=== PATIENT | female | born 1965 | race Caucasian/White ===

== ENCOUNTER 2016-10-07 14:16 | Inpatient (IN) | payer OTHER, MEDICARE ==
[~2016-10-07] VITALS: Ht 154.9 cm; Wt 67.3 kg
[~2016-10-07 14:16] MED LIST: ATIVAN0.5 MG PO; DILAUDID2 MG PO; LIORESAL 10MG T10 MG PO; MOTRIN 600 MG600 MG PO; NEURONTIN300 MG PO; PERCOCET 325 MG1 TA2 PO; QUETIAPINE FUMA25 MG PO; QUETIAPINE FUMA50 MG PO; RISPERDAL CONST50 MG IM; TRIHEXYPHENIDYL2 M2 PO
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
[2016-10-07 14:46] LABS: ABSOLUTE BASOPHIL COUNT 0 /CUMM (0.0-0.2); ABSOLUTE EOSINOPHIL COUNT 0 /CUMM (0.0-0.7); ABSOLUTE GRANULOCYTE CT 14.2 /CUMM (1.4-6.5); ABSOLUTE LYMPH COUNT 0.6 /CUMM (1.2-3.4); ABSOLUTE MONOCYTE COUNT 0.8 /CUMM (0.10-0.60); BASOPHIL % 0 % (0.0-2.0); EOSINOPHIL % 0 % (0-5); GRANULOCYTE % 90.9 % (42.2-75.2); HEMATOCRIT 36.7 % (37-47); MEAN CORPUSCULAR HGB 32.3 PG (27.0-31.0); MEAN CORPUSCULAR HGB CONC 34.1 G/DL (33.0-37.0); MEAN CORPUSCULAR VOLUME 94.8 FL (81.0-99.0); MEAN PLATELET VOLUME 8.4 FL (7.4-10.4); PLATELET COUNT 250 /CUMM (130-400); RED BLOOD CELL CT 3.87 /CUMM (4.20-5.40); WHITE BLOOD CELL COUNT 15.6 /CUMM (4.8-10.8)
--- NOTE | 2016-10-07 14:51 | NUR ---
PT AGITATED ST CATH , LABS DRAWN AND SENT URINE 3 TUBES OBTAINED.
--- NOTE | 2016-10-07 14:54 | NUR ---
UNABLE TO VERIFY HOME MEDS DUE TO CURRENT CIRCUMSTANCES
--- NOTE | 2016-10-07 15:06 | NUR ---
PT RESTING ON HER SIDE AT THIS TIME, MST AT BEDSIDE TO OBTAIN EKG, PT NSR ON MONITOR WITH HR 58 AT THIS TIME, PT STILL UNWILLING TO ANSWER ANY QUESTIONS AND GETS ANGRY WITH STAFF WHEN THEY ATTEMPT TO PROVIDE CARE. SITTER REMAINS WITH PT AT THIS TIME..
--- NOTE | 2016-10-07 15:30 | NUR ---
PT CARE ASSUMED BY THIS RN AT THIS TIME. PT SITTING UP IN BED PULLING AT SHIRT AND BLANKETS. PER DOCTOR OF NATUROPATHIC MEDICINE PT PULLED OFF TELEMONITOR LEADS. PT MEDICATED WITH 1MG ATIVAN FOR AGITATION. DOCTOR OF NATUROPATHIC MEDICINE CONTINUES AT BEDSIDE FOR SAFETY.
--- NOTE | 2016-10-07 16:07 | NUR ---
PT MEDICATED WITH ATIVAN IMG IV BY LAW RN AND HALDOL 2.5MG IM BY GISELLE AU FOR CAT SCAN.
--- NOTE | 2016-10-07 16:29 | CT SCAN REPORT ---
EXAMINATION: CT HEAD WITHOUT CONTRAST CLINICAL INFORMATION: Altered mental status COMPARISON: None. TECHNIQUE: Contiguous axial imaging was performed from the skull base to vertex without intravenous administration of contrast. . FINDINGS: There is no evidence of acute intracranial hemorrhage or territorial infarction. No abnormal mass effect or midline shift is seen. Ko to white matter differentiation is well preserved. No extra-axial fluid collections are identified. The ventricles are normal in size. There is no abnormal attenuation within the brain parenchyma. The osseous structures and soft tissues are normal. The mastoid air cells and visualized portions of the paranasal sinuses are well aerated. IMPRESSION: No acute intracranial pathology.
--- NOTE | 2016-10-07 17:07 | RADIOLOGY REPORT ---
EXAMINATION: XR PORTABLE CHEST CLINICAL INFORMATION: Status post overdose COMPARISON: 06/03/2015 TECHNIQUE: Portable view of the chest was obtained. FINDINGS: The lungs are well expanded. Mild bronchial wall thickening noted. There is no focal consolidation, edema, or effusion. No pneumothorax. The cardiomediastinal silhouette is within normal limits. No acute osseous abnormality. IMPRESSION: Bronchial wall thickening noted which can be seen with a small airways process.
--- NOTE | 2016-10-07 18:12 | NUR ---
HOUSE STAFF TO BEDSIDE FOR EVAL.
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
--- NOTE | 2016-10-07 18:39 | NUR ---
ROOM 111 NURSE INFORMED
--- NOTE | 2016-10-07 20:18 | NUR ---
CRITICAL TEST RESULTS [id number] TADEO WELLER 51 F TESTS AND RESULTS: ETHLYENE GLYCOL NEGATIVE AND METHANOL NEGATIVE Results received and read back by: NANCY DAY Results received date and time: 10/07/162018 The following provider was notified of the results, and read the results back: Notified date and time: 10/07/16 at 2019
--- NOTE | 2016-10-07 21:10 | NUR ---
REPORT GIVEN TO GISELLE CONTRERAS. [facility] CALLED FOR PT TRANSPORT.
--- NOTE | 2016-10-07 21:30 | NUR ---
PATIENT ADMITTED TO 111 WITH DRUG OD AND ADRIANA. PATIENT IS ALERT,RESTLESS.SPEECH IS CLEAR BUT NOT ORIENTED. UNABLE TO ANSWER SIMPLE QUESTIONS TO NAME AND BIRTHDATE. MONITOR SINUS TACHYCARDIA AT RATE OF 101.TB=524/70. SAT ON ROOM AIR =99%.LUNG SOUNDS CLEAR.
[2016-10-07 22:00] VITALS: BP 112/68
[2016-10-07 22:54] LABS: ABSOLUTE BASOPHIL COUNT 0 /CUMM (0.0-0.2); ABSOLUTE EOSINOPHIL COUNT 0 /CUMM (0.0-0.7); ABSOLUTE GRANULOCYTE CT 8.5 /CUMM (1.4-6.5); ABSOLUTE LYMPH COUNT 1.6 /CUMM (1.2-3.4); ABSOLUTE MONOCYTE COUNT 0.8 /CUMM (0.10-0.60)
[2016-10-07 23:00] LABS: BASOPHIL % 0.2 % (0.0-2.0); EOSINOPHIL % 0.1 % (0-5); GRANULOCYTE % 77.3 % (42.2-75.2); MEAN CORPUSCULAR HGB CONC 33.7 G/DL (33.0-37.0); MEAN CORPUSCULAR VOLUME 94.7 FL (81.0-99.0); MEAN PLATELET VOLUME 8.6 FL (7.4-10.4); PLATELET COUNT 208 /CUMM (130-400); RBC DISTRIBUTION WIDTH 15.2 % (11.5-14.5); RED BLOOD CELL CT 3.07 /CUMM (4.20-5.40)
[2016-10-07 23:05] LABS: HEMATOCRIT 29.1 % (37-47)
[2016-10-08] VITALS (17 sets, daily range): BP systolic 95–1438; BP diastolic 58–81
--- NOTE | 2016-10-08 01:38 | Admission Certification ---
Admission Certification Certification Statement - As attending physician, I certify that at the time of - admission, based on clinical presentation, severity of - symptoms, need for further diagnostic testing and - therapeutic interventions, and risk of adverse outcomes - without in-hospital treatment, in my clinical assessment, - this patient requires an acute hospital stay for a minimum - of two nights or longer. I have also considered psychsocial - factors such as support system, advanced age, financial - issues, cognitive issues, and failed out-patient treatments, - past re-admission history, safety of patient, and lack of - compliance as applicable. Specific rationale supporting this admission is: Encephalopathy, acute kidney injury
--- NOTE | 2016-10-08 02:30 | NUR ---
PATIENT APPEARS TO TALK TO PEOPLE NOT IN THE ROOM.WILL FLAIL ARMS AND LEGS WITHOUT PROVICATION.REMAINS RESTLESS IN BED AND RESISTANT TO CARE,ALTHOUGH LESS COMBATIVE IF PROCEDUES EXPLAINED.
[2016-10-08 06:20] LABS: ABSOLUTE BASOPHIL COUNT 0.1 /CUMM (0.0-0.2); ABSOLUTE EOSINOPHIL COUNT 0 /CUMM (0.0-0.7); ABSOLUTE GRANULOCYTE CT 7.7 /CUMM (1.4-6.5); ABSOLUTE LYMPH COUNT 2.1 /CUMM (1.2-3.4); ABSOLUTE MONOCYTE COUNT 0.7 /CUMM (0.10-0.60); BASOPHIL % 0.5 % (0.0-2.0); EOSINOPHIL % 0.2 % (0-5); HEMATOCRIT 30.9 % (37-47); MEAN CORPUSCULAR HGB 32.6 PG (27.0-31.0); MEAN CORPUSCULAR HGB CONC 34.6 G/DL (33.0-37.0); MEAN CORPUSCULAR VOLUME 94.2 FL (81.0-99.0); MEAN PLATELET VOLUME 8.5 FL (7.4-10.4); PLATELET COUNT 193 /CUMM (130-400); RBC DISTRIBUTION WIDTH 14.6 % (11.5-14.5); RED BLOOD CELL CT 3.28 /CUMM (4.20-5.40); WHITE BLOOD CELL COUNT 10.5 /CUMM (4.8-10.8)
[2016-10-08 06:26] LABS: PT 11.5 SEC (9.4-12.5); PTT 39 SEC (25-37)
--- NOTE | 2016-10-08 08:13 | RADIOLOGY REPORT ---
EXAMINATION: XR PORTABLE CHEST CLINICAL INFORMATION: Leukocytosis COMPARISON: 10/07/2016 TECHNIQUE: Portable view of the chest was obtained. FINDINGS: Lung volumes are symmetric. There are subtle streaky opacity at the left base which may reflect bronchovascular crowding or atelectasis. The right lung is clear. No evidence of pneumothorax, pleural effusion, or pulmonary edema. The cardiomediastinal contour is unremarkable. No acute osseous findings are seen. IMPRESSION: Subtle streaky left basilar opacity may reflect atelectasis or bronchovascular crowding; short-term radiographic follow-up may be performed to assess for developing consolidation.
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
--- NOTE | 2016-10-08 10:37 | NUR ---
0800: RECEIVED PT IN BED. DROWSY BUT AROUSABLE. CONFUSED, AGITATED, ANGRY. PT HALLUCINATING, PULLING AT THINGS, POINTING AND TALKING TO PEOPLE WHO AREN'T THERE. PT NOT FOLLOWING COMMANDS. PUPILS EQUAL, REACTIVE. LUNGS CLEAR. ON RA. NSR ON MONITOR. AFEBRILE. B/P WNL. UNKNOWN LAST BM. +BS. ABDOMEN SOFT. CHAN IN PLACE DRAINING LARGE AMOUNTS OF CLEAR YELLOW URINE. SKIN INTACT. NO EDEMA NOTED. PT RECEIVING IVF NS @ 200ML/HR PER DR MORALES AT THIS TIME. WHILE BANANA BAG IS RUNNING AT 125 ML/HR PLEASE RUN IVF AT ONLY 75 ML/HR. CIWA 13, PER DR MORALES NO PRN ATIVAN AT THIS TIME SHE WANTS PT TO WAKE UP MORE. GCS 13. ALPS IN PLACE. SITTER REMAINS AT BEDSIDE. WILL MONITOR.
--- NOTE | 2016-10-08 10:58 | Cons- Psychiatry ---
Psychiatric Consult Date of Consult: 10/08/16 Reason for Consult: "drug abuse" After discussion with the ICU team, changed to: "Patient had a drug overdose, with non-prescribed opiates on utox. Please advise on psychotropic medication restart and assist with disposition recommendation." History of Present Illness: 51 F ROSANA from a residence for [facility], after another person there could not awaken her. She responded to Narcan, but the team has been unable to determine what she may have ingested or injected. Ethylene glycol and methanol negative. Utox: Opiates 2589 Benzos 224 Cannabis 26.5 Serum Alcohol <10.0 CK 5747 on 10/07/16 Mg++ 1.4, K+ 3.3; both on 10/08/16 House staff has made an attempt to collect collateral from friends. the patient' s boyfriend, Arvind, did not answer the phone when called. On initial exam, track mckenzie and bruises in LUE, jean. dorsum of hand. Also, "blood crusted on her mouth." Tauma to upper lip. Please see the H&P for the discussion on acid base disorder, ADRIANA, likely heroin overdose. Allergies: Coded Allergies: Penicillins (UNKNOWN 10/07/16) Current Medications: Current Medications Sig/Stewart Start time Last Medication Dose Route Stop Time Status Admin Acetaminophen 650 MG Q6P PRN 10/08 0115 AC PO Acetaminophen/ 1 TAB Q6P PRN 10/08 0115 AC Hydrocodone Bitart PO Clindamycin 600 MG Q8H 10/08 0400 AC 10/08 Dextrose/Water 50 ML IV 1134 Clindamycin 600 MG IQ8 10/07 1945 DC 10/07 Dextrose/Water 50 ML IV 1959 Cyanocobalamin/ 1 BAG 2300 10/07 2300 DC 10/07 Thiamine/Pyridoxine IV 10/08 0659 2309 Dextrose/Water 1,000 ML Cyanocobalamin/ 1 BAG DAILY 10/07 1829 DC Thiamine/Pyridoxine IV 10/08 0108 Dextrose/Water 1,000 ML Haloperidol 2.5 MG ONCE ONE 10/07 1600 DC 10/07 IM 10/07 1601 1555 Haloperidol 0 .STK-MED ONE 10/07 1555 DC .ROUTE Lorazepam 2 MG Q6 10/07 2359 AC 10/08 IV 10/08 1801 0532 Lorazepam 2 MG ONE ONE 10/07 1945 DC 10/07 IV 10/07 1946 1957 Lorazepam 0 .STK-MED ONE 10/07 1937 DC .ROUTE Lorazepam 2 MG Q2P PRN 10/07 1830 AC IV Lorazepam 1 MG ONCE ONE 10/07 1600 DC 10/07 IV 10/07 1601 1607 Lorazepam 0 .STK-MED ONE 10/07 1554 DC .ROUTE Lorazepam 1 MG ONCE ONE 10/07 1530 DC 10/07 IV 10/07 1531 1530 Lorazepam 0 .STK-MED ONE 10/07 1524 DC .ROUTE Magnesium Sulfate 1 GM ONCE ONE 10/08 0800 AC 10/08 Dextrose/Water 100 ML IV 10/08 1159 0925 Morphine Sulfate 1 MG Q4P PRN 10/08 0115 AC IV Potassium Chloride 10 MEQ Q1 10/08 0900 DC 10/08 IV 10/08 1101 1141 Potassium Chloride 20 MEQ Q13H 10/08 0900 AC 10/08 Sodium Chloride 1,000 ML IV 10/09 1059 1019 Sodium Chloride 1,000 ML Q13H 10/08 2345 DC 10/08 IV 0157 Sodium Chloride 1,000 ML BOLUS ONE 10/07 1845 DC 10/07 IV 10/07 1944 1957 Sodium Chloride 1,000 ML BOLUS ONE 10/07 1730 DC 10/07 IV 10/07 1829 1853 Sodium Chloride 1,000 ML BOLUS ONE 10/07 1545 DC 10/07 IV 10/07 1644 1824 Sodium Chloride 1,000 ML BOLUS ONE 10/07 1445 DC 10/07 IV 10/07 1544 1621 Thiamine HCl 100 MG ONCE ONE 10/07 1830 CAN IM 10/07 1831 Past History Past Medical History Neurological: NONE EENT: NONE Cardiovascular: NONE Respiratory: NONE Gastrointestinal: NONE Hepatic: NONE Renal: NONE Musculoskeletal: NONE Psychiatric: anxiety, depression, PTSD BORDERLINE PERSONALITY DO Endocrine: NONE Blood Disorders: NONE Cancer(s): NONE ACCOUNT DIRECTOR/Reproductive: NONE Past Surgical History Surgical History: appendectomy Psychiatric Treatment History Psych Treatment Psychiatric Treatment Yes Inpatient Treatment Yes Outpatient Treatment Yes Location of Treatment [facility] 2007, and outpt by [facility] Diagnosis: See below Risk Factors: SA/MH hospitalized, substance abuse, isolate/no social support, limited support Substance Use/Abuse History Drug Use/Abuse Substances Used/Abused Yes Substance Used/Abused Alcohol Substance Abuse Treatment Substance Abuse Treatment Past Substance Abuse [place] Yes Assessment/Plan Mental Status Mental Status Exam: We were unable to interview the patient today, as she is asleep, and unable to awaken easily. She is in no distress, and breathing regularly. Lab Results: Laboratory Tests 10/08 10/07 0600 2200 Chemistry Sodium (137 - 145 mmol/L) 144 Potassium (3.5 - 5.1 mmol/L) 3.3 L Chloride (98 - 107 mmol/L) 110 H Carbon Dioxide (22 - 30 mmol/L) 22 Anion Gap (5 - 16) 11 BUN (7 - 17 mg/dL) 32 H Creatinine (0.5 - 1.0 mg/dL) 1.5 H Estimated GFR (>60 ml/min) 37 L Glucose (65 - 99 mg/dL) 92 Lactic Acid (0.7 - 2.1 mmol/L) 0.8 Calcium (8.4 - 10.2 mg/dL) 8.8 Phosphorus (2.5 - 4.5 mg/dL) 3.7 Magnesium (1.6 - 2.3 mg/dL) 1.4 L Total Bilirubin (0.2 - 1.3 mg/dL) 0.9 AST (14 - 36 U/L) 136 H ALT (9 - 52 U/L) 43 Creatine Kinase (30 - 135 U/L) 5840 H Albumin (3.5 - 5.0 g/dL) 3.5 Coagulation PT (9.4 - 12.5 SEC) 11.5 INR (0.90 - 1.19) 1.10 APTT (25 - 37 SEC) 39 H Hematology CBC w Diff NO MAN DIFF REQ WBC (4.8 - 10.8 /CUMM) 10.5 RBC (4.20 - 5.40 /CUMM) 3.28 L Hgb (12.0 - 16.0 G/DL) 10.7 L Hct (37 - 47 %) 30.9 L MCV (81.0 - 99.0 FL) 94.2 MCH (27.0 - 31.0 PG) 32.6 H RDW (11.5 - 14.5 %) 14.6 H Plt Count (130 - 400 /CUMM) 193 MPV (7.4 - 10.4 FL) 8.5 Gran % (42.2 - 75.2 %) 73.0 Lymphocytes % (20.5 - 51.1 %) 20.0 L Monocytes % (1.7 - 9.3 %) 6.3 Eosinophils % (0 - 5 %) 0.2 Basophils % (0.0 - 2.0 %) 0.5 Absolute Granulocytes (1.4 - 6.5 /CUMM) 7.7 H Absolute Lymphocytes (1.2 - 3.4 /CUMM) 2.1 Absolute Monocytes (0.10 - 0.60 /CUMM) 0.7 H Absolute Eosinophils (0.0 - 0.7 /CUMM) 0 Absolute Basophils (0.0 - 0.2 /CUMM) 0.1 PUBS MCHC (33.0 - 37.0 G/DL) 34.6 10/07 10/07 10/07 2200 2148 1944 Chemistry Sodium (137 - 145 mmol/L) 145 Potassium (3.5 - 5.1 mmol/L) 3.8 Chloride (98 - 107 mmol/L) 114 H Carbon Dioxide (22 - 30 mmol/L) 20 L Anion Gap (5 - 16) 11 BUN (7 - 17 mg/dL) 37 H Creatinine (0.5 - 1.0 mg/dL) 2.2 H Estimated GFR (>60 ml/min) 24 L Glucose (65 - 99 mg/dL) 86 Lactic Acid (0.7 - 2.1 mmol/L) 0.9 Calcium (8.4 - 10.2 mg/dL) 8.2 L Phosphorus (2.5 - 4.5 mg/dL) 4.4 Magnesium (1.6 - 2.3 mg/dL) 1.6 Total Bilirubin (0.2 - 1.3 mg/dL) 0.6 AST (14 - 36 U/L) 110 H ALT (9 - 52 U/L) 39 Creatine Kinase (30 - 135 U/L) 5747 H Albumin (3.5 - 5.0 g/dL) 3.3 L Hematology CBC w Diff NO MAN DIFF REQ WBC (4.8 - 10.8 /CUMM) 11.0 H RBC (4.20 - 5.40 /CUMM) 3.07 L Hgb (12.0 - 16.0 G/DL) 9.8 L Hct (37 - 47 %) 29.1 L MCV (81.0 - 99.0 FL) 94.7 MCH (27.0 - 31.0 PG) 32.0 H RDW (11.5 - 14.5 %) 15.2 H Plt Count (130 - 400 /CUMM) 208 MPV (7.4 - 10.4 FL) 8.6 Gran % (42.2 - 75.2 %) 77.3 H Lymphocytes % (20.5 - 51.1 %) 14.8 L Monocytes % (1.7 - 9.3 %) 7.6 Eosinophils % (0 - 5 %) 0.1 Basophils % (0.0 - 2.0 %) 0.2 Absolute Granulocytes (1.4 - 6.5 /CUMM) 8.5 H Absolute Lymphocytes (1.2 - 3.4 /CUMM) 1.6 Absolute Monocytes (0.10 - 0.60 /CUMM) 0.8 H Absolute Eosinophils (0.0 - 0.7 /CUMM) 0 Absolute Basophils (0.0 - 0.2 /CUMM) 0 PUBS MCHC (33.0 - 37.0 G/DL) 33.7 Urines Ur Random Creatinine (mg/dL) 29.4 Cancelled Ur Random Sodium (30 - 90 mmol/L) 153 H Ur Random Potassium (mmol/L) 5.0 Fraction Sodium Excret (<1% %) 10.6 H 10/07 10/07 10/07 1930 1738 1437 Blood Gas pH (7.35 - 7.45 PH) 7.46 H pCO2 (35 - 45 TORR) 25 L pO2 (80 - 100 TORR) 91 HCO3 (21 - 28 MEQ/L) 17 L ABG O2 Sat (Measured) (>96.0 %) 97.0 Carboxyhemoglobin (1.5 - 5.0 %) 0.4 L O2 Concentration % RA O2 Delivery Method RA Chemistry Sodium Cancelled Potassium Cancelled Chloride Cancelled Carbon Dioxide Cancelled Anion Gap Cancelled BUN Cancelled Creatinine Cancelled BUN/Creatinine Ratio Cancelled Miscellaneous Phlebotomy Draw Site LEFT BRACHIAL Toxicology Urine Opiates Screen (>2000 NG/ML) 2589.00 H Methadone Screen (>300 NG/ML) 101 Barbiturate Screen (>200 NG/ML) 88 Ur Phencyclidine Scrn (>25 NG/ML) < 6.00 Amphetamines Screen (>1000 NG/ML) 130 U Benzodiazepines Scrn (>200 NG/ML) 224 H Urine Cocaine Screen (>300 NG/ML) ND Urine Cannabis Screen (>50 NG/ML) 26.50 10/07 10/07 1437 1434 Chemistry Sodium (137 - 145 mmol/L) 147 H Potassium (3.5 - 5.1 mmol/L) 4.0 Chloride (98 - 107 mmol/L) 106 Carbon Dioxide (22 - 30 mmol/L) 18 L Anion Gap (5 - 16) 23 H BUN (7 - 17 mg/dL) 44 H Creatinine (0.5 - 1.0 mg/dL) 3.0 H Estimated GFR (>60 ml/min) 17 L BUN/Creatinine Ratio (7 - 25 %) 14.7 Glucose (65 - 99 mg/dL) 132 H Serum Osmolality (285 - 295 MOSM/KG) 318 H Calcium (8.4 - 10.2 mg/dL) 10.4 H Magnesium (1.6 - 2.3 mg/dL) 1.8 Total Bilirubin (0.2 - 1.3 mg/dL) 1.0 AST (14 - 36 U/L) 67 H ALT (9 - 52 U/L) 32 Alkaline Phosphatase (<127 U/L) 90 Troponin I (< 0.11 ng/ml) 0.01 Total Protein (6.3 - 8.2 g/dL) 8.6 H Albumin (3.5 - 5.0 g/dL) 4.4 Globulin (1.9 - 4.2 gm/dL) 4.2 Albumin/Globulin Ratio (1.1 - 2.2 %) 1.0 L Hematology CBC w Diff MAN DIFF ORDERED WBC (4.8 - 10.8 /CUMM) 15.6 H RBC (4.20 - 5.40 /CUMM) 3.87 L Hgb (12.0 - 16.0 G/DL) 12.5 Hct (37 - 47 %) 36.7 L MCV (81.0 - 99.0 FL) 94.8 MCH (27.0 - 31.0 PG) 32.3 H RDW (11.5 - 14.5 %) 15.0 H Plt Count (130 - 400 /CUMM) 250 MPV (7.4 - 10.4 FL) 8.4 Gran % (42.2 - 75.2 %) 90.9 H Lymphocytes % (20.5 - 51.1 %) 4.0 L Monocytes % (1.7 - 9.3 %) 5.1 Eosinophils % (0 - 5 %) 0 Basophils % (0.0 - 2.0 %) 0 L Absolute Granulocytes (1.4 - 6.5 /CUMM) 14.2 H Segmented Neutrophils (42.2 - 75.2 %) 83 H Band Neutrophils (0.0 - 5.0 %) 9 H Absolute Lymphocytes (1.2 - 3.4 /CUMM) 0.6 L Lymphocytes (20.5 - 51.1 %) 7 L Monocytes (1.7 - 9.3 %) 1 L Absolute Monocytes (0.10 - 0.60 /CUMM) 0.8 H Absolute Eosinophils (0.0 - 0.7 /CUMM) 0 Absolute Basophils (0.0 - 0.2 /CUMM) 0 Platelet Estimate (ADEQUATE) ADEQUATE Normocytic RBCs VERIFIED Normochromic RBCs VERIFIED PUBS MCHC (33.0 - 37.0 G/DL) 34.1 Miscellaneous Ref Lab Test Result Pending Toxicology Salicylates (0 - 20.0 mg/dL) < 1.0 Acetaminophen (10.0 - 30.0 ug/mL) < 10.0 L Ethylene Glycol NEGATIVE Serum Alcohol (<10 MG/DL) < 10.0 Methyl Alcohol, Quant NEGATIVE Urines Urinalysis MOD H Urine Color (YEL,AMB,STR) YEL Urine Clarity (CLEAR) HAZY H Urine pH (5.0 - 8.0) 5.5 Ur Specific [place] (1.001 - 1.035) >= 1.030 Urine Protein (NEG,<30 MG/DL) 100 H Urine Ketones (NEG) TRACE H Urine Nitrite (NEG) NEG Urine Bilirubin (NEG) NEG Urine Urobilinogen (0.1 - 1.0 EU/dl) 0.2 Ur Leukocyte Esterase (NEG) NEG Ur Microscopic SEDIMENT EXAMINED Urine WBC (0 - 2 /HPF) RARE Ur Epithelial Cells (NONE,FEW) RARE Urine Mucus (FEW,NONE) FEW Urine Hemoglobin (NEG) TRACE-LYSED Urine Glucose (N MG/DL) NEG Urine Test NEGATIVE Diffential Diagnosis: From [facility] D/C note of 10/20/07 and treatment note 03/24/2016 from [facility]: Bipolar I disorder, mixed, mainly irritable type with rapid cycling Alcohol use disorder, severe, recurrent Opioid dependence Benzodiazepine use disorder Substance-induced mood disorder History of PTSD with "flashbacks" Borderline P.D., severe. Impression: Nursing and the ICU medical team report that the patient has apparently been referring to internal stimuli, and has been agitated earlier. We suggest that PRN Haldol be made available. Do not administer her risperidone Consta depot injection at this time. The patient had moved her residence, and her VN was unable to find her on 2016. She has been discharged from that agency, [facility], and from clinic at [facility], and was last seen by psychiatry there on 04/30/16. The patient had reported problem with her landlord and problem with obtaining Artane, as insurance would not pay for it. She had been directed to Guillermina Duong (ACCOUNT DIRECTOR) for menopause symptoms at that time. Also at that time, the patient had refused olanzapine, Vistaril, gabapentin and an increase in quetiapine. Also directed to [facility] for housing assistance. Per med record at [facility], last known home meds, as of 03/24/16: Trihexyphenidyl/Artane 2 mg PO BID (Prior auth obtained by pharmacy, 06/09/16) Risperidone 1 mg PO BID, PRN Risperidone Consta 50 mg/2 mL, 2 mL IM every 2 weeks Quetiapine/Seroquel 25 mg PO 1-2 tabs up to 2X/day PRN Provisional Treatment Plan: 1. Please order haloperidol 1 mg PO, IM if unable to take PO, every 8 hours, as needed, for agitation, hallucinations. a. Monitor and replete electrolytes, especially potassium and magnesium. b. Monitor EKG, and hold this medication if arrhythmia or if QTc greater than 475 mS c. Hold for sedation. 2. Continue 1:1 sitter, at least until we can rule out suicidal ideation. 3. 'ETOH Detox' order set, for suspected alcohol and benzo withdrawal. a. Daily thiamine, folic acid and MVI b. CIWA monitoring protocol 4. The patient is not to leave the hospital, AMA, or otherwise, until cleared by psychiatry. I have partially filled out a Physician's Emergenecy Certificate and place it in the chart for review, completion and signature of the attending physician. 5. When ultimate discharge day is known, please contact her VNA, [facility], Fei Tobar, GISELLE, for resumption of care. 6. Discharge summary to psychiatry provider at [facility], Renetta Abernathy SAMANTHA, [phone]. 7. Consider opiate detox protocol, a copy of which we will leave in the chart. We will continue to follow along. Wood Brooks APRN, Pager [phone] Addendum Addendum 10/08/16 4130: The patient is awake and agitated, delirious. Her speech is mumbled and she is providing nonsense answers to questions. Housestaff reports that the patient's boyfriend told them that the patient had been drinking [employer]IR [employer]IP[employer], so we suggest that we assume we are treating the patient for alcohol and benzo withdrawal, at this time. 7. Cancel the previous Haldol order. 8. Please order haloperidol 1 mg PO, IM if unable to take PO, every 6 hours, scheduled, for agitation, hallucinations. a. Monitor and replete electrolytes, especially potassium and magnesium. b. Monitor EKG, and hold this medication if arrhythmia or if QTc greater than 475 mS c. Hold for oversedation. 9. Please order haloperidol 2 mg PO, IM if unable to take PO, every 8 hours, as needed, for severe or dangerous agitation. 10. Evaluate for alternate alcohol ingestion. We suggest that the 'ETOH Detox' order set be initiated. Nursing reports that the patient has impaired swallowing/gag reflex, so the Haldol will be ordered by housestaff as IM, for now; Lorazepam will be ordered as IV. Do not give haloperidol via IV. I will ask the covering psychiatrist, Dr. Beauchamp, to look in on the patient tomorrow. Wood Brooks APRN, Pager [phone]
--- NOTE | 2016-10-08 11:21 | NUR ---
PT SLEEPING. CALM AND COOPERATIVE AT THIS TIME. CONT OBSERVATION MONITOR AT BEDSIDE. PER PSYCH PT UNABLE TO LEAVE AMA.
--- NOTE | 2016-10-08 12:50 | NUR ---
REC'D SWALLOW EVAL ORDERS; EMEKA RN,HARINI-PT RECENTLY REC'D ATIVAN. PT CURRENTLY LETHARGIC, DIFFICULTY FOLLOWING DIRECTIONS. WILL REATTEMPT LATER THIS AFTERNOON.
--- NOTE | 2016-10-08 14:51 | Cons- Neurology ---
General Information and HPI Consulting Request Date of Consult: 10/08/16 Requested By: RICARDO LEE MD History of Present Illness: 51-year-old female found at home unresponsive. When seen in the ED she was confused and combative. Per verbal report she did seem to transiently awaken with. She is unknown. Drug user but it is unclear what she has been taking lately. She has had previous ED visits for drug use.in-hospital she intermittently awakens but appears hallucinating. There has been no observed convulsive activity Allergies/Medications Allergies: Coded Allergies: Penicillins (UNKNOWN 10/07/16) Home Med List: Baclofen (Lioresal) 10 MG TAB 1 TAB PO TIDPRN PRN muscle strain Gabapentin (Neurontin) 300 MG CAP 1 CAP PO TID ANXIETY (Reported) HYDROMORPHONE HCL (Dilaudid) 2 MG TAB 1-2 TAB PO Q6P PRN severe pain Ibuprofen (Motrin 600 MG Tab) 600 MG TAB 1 TAB PO Q6P PRN PAIN Quetiapine Fumarate 25 MG TAB 25 MG PO PRN MENTAL HEALTH/SLEEP (Reported) RISPERIDONE MICROSPHERES (Risperdal Consta) 50 MG/2 ML SYRINGE 50 MG IM Q2W BIPOLAR (Reported) Trihexyphenidyl HCl 2 MG TABLET 1 TAB PO BID DIRECTED (Reported) Current Medications: Current Medications Sig/Stewart Start time Last Medication Dose Route Stop Time Status Admin Acetaminophen 650 MG Q6P PRN 10/08 0115 AC PO Acetaminophen/ 1 TAB Q6P PRN 10/08 0115 AC Hydrocodone Bitart PO Clindamycin 600 MG Q8H 10/08 0400 AC 10/08 Dextrose/Water 50 ML IV 1134 Clindamycin 600 MG IQ8 10/07 1945 DC 10/07 Dextrose/Water 50 ML IV 1959 Cyanocobalamin/ 1 BAG DAILY 10/08 1159 AC 10/08 Thiamine/Pyridoxine IV 1350 Dextrose/Water 1,000 ML Cyanocobalamin/ 1 BAG 2300 10/07 2300 DC 10/07 Thiamine/Pyridoxine IV 10/08 0659 2309 Dextrose/Water 1,000 ML Cyanocobalamin/ 1 BAG DAILY 10/07 1829 DC Thiamine/Pyridoxine IV 10/08 0108 Dextrose/Water 1,000 ML Haloperidol 1 MG Q8P PRN 10/08 1430 UNVr IM Haloperidol 2.5 MG ONCE ONE 10/07 1600 DC 10/07 IM 10/07 1601 1555 Haloperidol 0 .STK-MED ONE 10/07 1555 DC .ROUTE Lorazepam 2 MG Q6 10/07 2359 AC 10/08 IV 10/08 1801 1206 Lorazepam 2 MG ONE ONE 10/07 1945 DC 10/07 IV 10/07 1946 1957 Lorazepam 0 .STK-MED ONE 10/07 1937 DC .ROUTE Lorazepam 2 MG Q2P PRN 10/07 1830 AC IV Lorazepam 1 MG ONCE ONE 10/07 1600 DC 10/07 IV 10/07 1601 1607 Lorazepam 0 .STK-MED ONE 10/07 1554 DC .ROUTE Lorazepam 1 MG ONCE ONE 10/07 1530 DC 10/07 IV 10/07 1531 1530 Lorazepam 0 .STK-MED ONE 10/07 1524 DC .ROUTE Magnesium Sulfate 1 GM ONCE ONE 10/08 0800 DC 10/08 Dextrose/Water 100 ML IV 10/08 1159 0925 Morphine Sulfate 1 MG Q4P PRN 10/08 0115 AC IV Potassium Chloride 10 MEQ Q1 10/08 0900 DC 10/08 IV 10/08 1101 1141 Potassium Chloride 20 MEQ Q13H 10/08 0900 AC 10/08 Sodium Chloride 1,000 ML IV 10/09 1059 1019 Sodium Chloride 1,000 ML Q13H 10/08 2345 DC 10/08 IV 0157 Sodium Chloride 1,000 ML BOLUS ONE 10/07 1845 DC 10/07 IV 10/07 1944 1957 Sodium Chloride 1,000 ML BOLUS ONE 10/07 1730 DC 10/07 IV 10/07 1829 1853 Sodium Chloride 1,000 ML BOLUS ONE 10/07 1545 DC 10/07 IV 10/07 1644 1824 Sodium Chloride 1,000 ML BOLUS ONE 10/07 1445 DC 10/07 IV 10/07 1544 1621 Thiamine HCl 100 MG ONCE ONE 10/07 1830 CAN IM 10/07 1831 Review of Systems Review of Systems: Unable to obtain due to patient's mental status Past History Travel History Traveled to [place] past 21 day No Medical History Neurological: NONE EENT: NONE Cardiovascular: NONE Respiratory: NONE Gastrointestinal: NONE Hepatic: NONE Renal: NONE Musculoskeletal: NONE Psychiatric: anxiety, depression, PTSD 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 Home Smoking Status: Unknown If Ever Smoked Illicit Drug Use: cocaine, heroin Functional Ability ADLs Independent: dressing, eating, toileting, bathing. Ambulation: independent IADLs Independent: shopping, housework, finances, food prep, telephone, transportation , medication admin. Exam & Diagnostic Data Vital Signs and I&O Vital Signs Date Time Temp Pulse Resp B/P Pulse O2 O2 Flow FiO2 Ox Delivery Rate 10/08 1400 76 18 95/66 10/08 1200 97.0 68 18 110/60 10/08 1200 97.0 68 18 110/60 98 Room Air 10/08 1000 83 20 102/68 10/08 0800 97.8 86 20 122/70 10/08 0800 97.8 86 20 122/70 99 Room Air 10/08 0400 96.6 89 20 117/64 10/08 0400 99 Room Air 10/08 0000 97.5 97 20 118/70 10/08 0000 97.5 97 20 118/70 99 Room Air 10/08 0000 95 Room Air 10/07 2200 96.3 102 22 112/68 10/07 2200 98 Room Air 10/07 2053 97.6 109 24 122/65 98 Room Air 10/07 1635 98.6 105 20 123/58 99 Room Air 10/07 1503 96 Room Air Intake & Output 10/08 1600 10/08 0800 10/08 0000 Intake Total 1519 1314 3200 Output Total 2450 3090 770 Balance -931 -1776 2430 Intake, IV 1519 1314 3200 Intake, Oral 0 Number 0 Bowel Movements Output, Urine 2450 3090 770 Patient 144 lb Weight Physical Exam: Lethargic, briefly arousable Intermittently seems to follow a simple command Pupil small difficult to assess reaction Extraocular movements intact laterally No obvious facial weakness Hearing, facial sensation, palate not assessable Motor tone normal, moving extremities equally Withdraw to noxious stimuli Deep tendon reflexes 1+ bilateral No convulsive activities noted Last 48 Hours of Lab Results: Laboratory Tests 10/08 10/07 0600 2200 Chemistry Sodium (137 - 145 mmol/L) 144 Potassium (3.5 - 5.1 mmol/L) 3.3 L Chloride (98 - 107 mmol/L) 110 H Carbon Dioxide (22 - 30 mmol/L) 22 Anion Gap (5 - 16) 11 BUN (7 - 17 mg/dL) 32 H Creatinine (0.5 - 1.0 mg/dL) 1.5 H Estimated GFR (>60 ml/min) 37 L Glucose (65 - 99 mg/dL) 92 Lactic Acid (0.7 - 2.1 mmol/L) 0.8 Calcium (8.4 - 10.2 mg/dL) 8.8 Phosphorus (2.5 - 4.5 mg/dL) 3.7 Magnesium (1.6 - 2.3 mg/dL) 1.4 L Total Bilirubin (0.2 - 1.3 mg/dL) 0.9 AST (14 - 36 U/L) 136 H ALT (9 - 52 U/L) 43 Creatine Kinase (30 - 135 U/L) 5840 H Albumin (3.5 - 5.0 g/dL) 3.5 Coagulation PT (9.4 - 12.5 SEC) 11.5 INR (0.90 - 1.19) 1.10 APTT (25 - 37 SEC) 39 H Hematology CBC w Diff NO MAN DIFF REQ WBC (4.8 - 10.8 /CUMM) 10.5 RBC (4.20 - 5.40 /CUMM) 3.28 L Hgb (12.0 - 16.0 G/DL) 10.7 L Hct (37 - 47 %) 30.9 L MCV (81.0 - 99.0 FL) 94.2 MCH (27.0 - 31.0 PG) 32.6 H RDW (11.5 - 14.5 %) 14.6 H Plt Count (130 - 400 /CUMM) 193 MPV (7.4 - 10.4 FL) 8.5 Gran % (42.2 - 75.2 %) 73.0 Lymphocytes % (20.5 - 51.1 %) 20.0 L Monocytes % (1.7 - 9.3 %) 6.3 Eosinophils % (0 - 5 %) 0.2 Basophils % (0.0 - 2.0 %) 0.5 Absolute Granulocytes (1.4 - 6.5 /CUMM) 7.7 H Absolute Lymphocytes (1.2 - 3.4 /CUMM) 2.1 Absolute Monocytes (0.10 - 0.60 /CUMM) 0.7 H Absolute Eosinophils (0.0 - 0.7 /CUMM) 0 Absolute Basophils (0.0 - 0.2 /CUMM) 0.1 PUBS MCHC (33.0 - 37.0 G/DL) 34.6 10/070 8 1944 Chemistry Sodium (137 - 145 mmol/L) 145 Potassium (3.5 - 5.1 mmol/L) 3.8 Chloride (98 - 107 mmol/L) 114 H Carbon Dioxide (22 - 30 mmol/L) 20 L Anion Gap (5 - 16) 11 BUN (7 - 17 mg/dL) 37 H Creatinine (0.5 - 1.0 mg/dL) 2.2 H Estimated GFR (>60 ml/min) 24 L Glucose (65 - 99 mg/dL) 86 Lactic Acid (0.7 - 2.1 mmol/L) 0.9 Calcium (8.4 - 10.2 mg/dL) 8.2 L Phosphorus (2.5 - 4.5 mg/dL) 4.4 Magnesium (1.6 - 2.3 mg/dL) 1.6 Total Bilirubin (0.2 - 1.3 mg/dL) 0.6 AST (14 - 36 U/L) 110 H ALT (9 - 52 U/L) 39 Creatine Kinase (30 - 135 U/L) 5747 H Albumin (3.5 - 5.0 g/dL) 3.3 L Hematology CBC w Diff NO MAN DIFF REQ WBC (4.8 - 10.8 /CUMM) 11.0 H RBC (4.20 - 5.40 /CUMM) 3.07 L Hgb (12.0 - 16.0 G/DL) 9.8 L Hct (37 - 47 %) 29.1 L MCV (81.0 - 99.0 FL) 94.7 MCH (27.0 - 31.0 PG) 32.0 H RDW (11.5 - 14.5 %) 15.2 H Plt Count (130 - 400 /CUMM) 208 MPV (7.4 - 10.4 FL) 8.6 Gran % (42.2 - 75.2 %) 77.3 H Lymphocytes % (20.5 - 51.1 %) 14.8 L Monocytes % (1.7 - 9.3 %) 7.6 Eosinophils % (0 - 5 %) 0.1 Basophils % (0.0 - 2.0 %) 0.2 Absolute Granulocytes (1.4 - 6.5 /CUMM) 8.5 H Absolute Lymphocytes (1.2 - 3.4 /CUMM) 1.6 Absolute Monocytes (0.10 - 0.60 /CUMM) 0.8 H Absolute Eosinophils (0.0 - 0.7 /CUMM) 0 Absolute Basophils (0.0 - 0.2 /CUMM) 0 PUBS MCHC (33.0 - 37.0 G/DL) 33.7 Urines Ur Random Creatinine (mg/dL) 29.4 Cancelled Ur Random Sodium (30 - 90 mmol/L) 153 H Ur Random Potassium (mmol/L) 5.0 Fraction Sodium Excret (<1% %) 10.6 H 10/07 10/07 10/07 1930 1738 1437 Blood Gas pH (7.35 - 7.45 PH) 7.46 H pCO2 (35 - 45 TORR) 25 L pO2 (80 - 100 TORR) 91 HCO3 (21 - 28 MEQ/L) 17 L ABG O2 Sat (Measured) (>96.0 %) 97.0 Carboxyhemoglobin (1.5 - 5.0 %) 0.4 L O2 Concentration % RA O2 Delivery Method RA Chemistry Sodium Cancelled Potassium Cancelled Chloride Cancelled Carbon Dioxide Cancelled Anion Gap Cancelled BUN Cancelled Creatinine Cancelled BUN/Creatinine Ratio Cancelled Miscellaneous Phlebotomy Draw Site LEFT BRACHIAL Toxicology Urine Opiates Screen (>2000 NG/ML) 2589.00 H Methadone Screen (>300 NG/ML) 101 Barbiturate Screen (>200 NG/ML) 88 Ur Phencyclidine Scrn (>25 NG/ML) < 6.00 Amphetamines Screen (>1000 NG/ML) 130 U Benzodiazepines Scrn (>200 NG/ML) 224 H Urine Cocaine Screen (>300 NG/ML) ND Urine Cannabis Screen (>50 NG/ML) 26.50 10/07 10/07 1437 1434 Chemistry Sodium (137 - 145 mmol/L) 147 H Potassium (3.5 - 5.1 mmol/L) 4.0 Chloride (98 - 107 mmol/L) 106 Carbon Dioxide (22 - 30 mmol/L) 18 L Anion Gap (5 - 16) 23 H BUN (7 - 17 mg/dL) 44 H Creatinine (0.5 - 1.0 mg/dL) 3.0 H Estimated GFR (>60 ml/min) 17 L BUN/Creatinine Ratio (7 - 25 %) 14.7 Glucose (65 - 99 mg/dL) 132 H Serum Osmolality (285 - 295 MOSM/KG) 318 H Calcium (8.4 - 10.2 mg/dL) 10.4 H Magnesium (1.6 - 2.3 mg/dL) 1.8 Total Bilirubin (0.2 - 1.3 mg/dL) 1.0 AST (14 - 36 U/L) 67 H ALT (9 - 52 U/L) 32 Alkaline Phosphatase (<127 U/L) 90 Troponin I (< 0.11 ng/ml) 0.01 Total Protein (6.3 - 8.2 g/dL) 8.6 H Albumin (3.5 - 5.0 g/dL) 4.4 Globulin (1.9 - 4.2 gm/dL) 4.2 Albumin/Globulin Ratio (1.1 - 2.2 %) 1.0 L Hematology CBC w Diff MAN DIFF ORDERED WBC (4.8 - 10.8 /CUMM) 15.6 H RBC (4.20 - 5.40 /CUMM) 3.87 L Hgb (12.0 - 16.0 G/DL) 12.5 Hct (37 - 47 %) 36.7 L MCV (81.0 - 99.0 FL) 94.8 MCH (27.0 - 31.0 PG) 32.3 H RDW (11.5 - 14.5 %) 15.0 H Plt Count (130 - 400 /CUMM) 250 MPV (7.4 - 10.4 FL) 8.4 Gran % (42.2 - 75.2 %) 90.9 H Lymphocytes % (20.5 - 51.1 %) 4.0 L Monocytes % (1.7 - 9.3 %) 5.1 Eosinophils % (0 - 5 %) 0 Basophils % (0.0 - 2.0 %) 0 L Absolute Granulocytes (1.4 - 6.5 /CUMM) 14.2 H Segmented Neutrophils (42.2 - 75.2 %) 83 H Band Neutrophils (0.0 - 5.0 %) 9 H Absolute Lymphocytes (1.2 - 3.4 /CUMM) 0.6 L Lymphocytes (20.5 - 51.1 %) 7 L Monocytes (1.7 - 9.3 %) 1 L Absolute Monocytes (0.10 - 0.60 /CUMM) 0.8 H Absolute Eosinophils (0.0 - 0.7 /CUMM) 0 Absolute Basophils (0.0 - 0.2 /CUMM) 0 Platelet Estimate (ADEQUATE) ADEQUATE Normocytic RBCs VERIFIED Normochromic RBCs VERIFIED PUBS MCHC (33.0 - 37.0 G/DL) 34.1 Miscellaneous Ref Lab Test Result Pending Toxicology Salicylates (0 - 20.0 mg/dL) < 1.0 Acetaminophen (10.0 - 30.0 ug/mL) < 10.0 L Ethylene Glycol NEGATIVE Serum Alcohol (<10 MG/DL) < 10.0 Methyl Alcohol, Quant NEGATIVE Urines Urinalysis MOD H Urine Color (YEL,AMB,STR) YEL Urine Clarity (CLEAR) HAZY H Urine pH (5.0 - 8.0) 5.5 Ur Specific [place] (1.001 - 1.035) >= 1.030 Urine Protein (NEG,<30 MG/DL) 100 H Urine Ketones (NEG) TRACE H Urine Nitrite (NEG) NEG Urine Bilirubin (NEG) NEG Urine Urobilinogen (0.1 - 1.0 EU/dl) 0.2 Ur Leukocyte Esterase (NEG) NEG Ur Microscopic SEDIMENT EXAMINED Urine WBC (0 - 2 /HPF) RARE Ur Epithelial Cells (NONE,FEW) RARE Urine Mucus (FEW,NONE) FEW Urine Hemoglobin (NEG) TRACE-LYSED Urine Glucose (N MG/DL) NEG Urine Test NEGATIVE Imaging/Other Studies: CT head: IMPRESSION: No acute intracranial pathology. Assessment/Plan Assessment: Acute encephalopathy, likely drug-related Recommendations: Continue full support and hydration Consult Acknowledgment - Thank you for your consult request.
--- NOTE | 2016-10-08 15:06 | ELECTROENCEPHALOGRAM REPORT ---
Electroencephalogram Report Electroencephalogram Results Date of service: 10/08/16 Attending MD: RICARDO LEE MD Water Technician: Phil Robles EEG Number: [id number] Test Utilizes: 21 electrode system Pertinent Hx/Physical/Neuro Findings/Clin Diagnosis: obtunded Inpatient Medications: Current Medications Sig/Stewart Start time Last Medication Dose Route Stop Time Status Admin Acetaminophen 650 MG Q6P PRN 10/08 0115 AC PO Acetaminophen/ 1 TAB Q6P PRN 10/08 0115 AC Hydrocodone Bitart PO Clindamycin 600 MG Q8H 10/08 0400 AC 10/08 Dextrose/Water 50 ML IV 1134 Clindamycin 600 MG IQ8 10/07 1945 DC 10/07 Dextrose/Water 50 ML IV 1959 Cyanocobalamin/ 1 BAG DAILY 10/08 1159 AC 10/08 Thiamine/Pyridoxine IV 1350 Dextrose/Water 1,000 ML Cyanocobalamin/ 1 BAG 2300 10/07 2300 DC 10/07 Thiamine/Pyridoxine IV 10/08 0659 2309 Dextrose/Water 1,000 ML Cyanocobalamin/ 1 BAG DAILY 10/07 1829 DC Thiamine/Pyridoxine IV 10/08 0108 Dextrose/Water 1,000 ML Haloperidol 1 MG Q8P PRN 10/08 1430 UNVr IM Haloperidol 2.5 MG ONCE ONE 10/07 1600 DC 10/07 IM 10/07 1601 1555 Haloperidol 0 .STK-MED ONE 10/07 1555 DC .ROUTE Lorazepam 2 MG Q6 10/07 2359 AC 10/08 IV 10/08 1801 1206 Lorazepam 2 MG ONE ONE 10/07 1945 DC 10/07 IV 10/07 1946 1957 Lorazepam 0 .STK-MED ONE 10/07 1937 DC .ROUTE Lorazepam 2 MG Q2P PRN 10/07 1830 AC IV Lorazepam 1 MG ONCE ONE 10/07 1600 DC 10/07 IV 10/07 1601 1607 Lorazepam 0 .STK-MED ONE 10/07 1554 DC .ROUTE Lorazepam 1 MG ONCE ONE 10/07 1530 DC 10/07 IV 10/07 1531 1530 Lorazepam 0 .STK-MED ONE 10/07 1524 DC .ROUTE Magnesium Sulfate 1 GM ONCE ONE 10/08 0800 DC 10/08 Dextrose/Water 100 ML IV 10/08 1159 0925 Morphine Sulfate 1 MG Q4P PRN 10/08 0115 AC IV Potassium Chloride 10 MEQ Q1 10/08 0900 DC 10/08 IV 10/08 1101 1141 Potassium Chloride 20 MEQ Q13H 10/08 0900 AC 10/08 Sodium Chloride 1,000 ML IV 10/09 1059 1019 Sodium Chloride 1,000 ML Q13H 10/08 2345 DC 10/08 IV 0157 Sodium Chloride 1,000 ML BOLUS ONE 10/07 1845 DC 10/07 IV 10/07 1944 1957 Sodium Chloride 1,000 ML BOLUS ONE 10/07 1730 DC 10/07 IV 10/07 1829 1853 Sodium Chloride 1,000 ML BOLUS ONE 10/07 1545 DC 10/07 IV 10/07 1644 1824 Sodium Chloride 1,000 ML BOLUS ONE 10/07 1445 DC 10/07 IV 10/07 1544 1621 Thiamine HCl 100 MG ONCE ONE 10/07 1830 CAN IM 10/07 1831 Interpretation: EEG in obtunded state 14-14 cps activity is seen intermittently, bilaterally Intermittend 4-5 cps activity is superimposed No focal or epileptiform activities Impression: Abnormal EEG indicative of diffuse cerebral dysfunction
--- NOTE | 2016-10-08 16:15 | NUR ---
Referral received this am via electronic border patrol agent. This patient is a 51 year old woman, admitted to the hospital last evening after an overdose of unprescribed narcotics. Patient in ICU; not able to participate in a meaningful interview. I will follow to better assess aftercare plans and will collaborate with case management.
--- NOTE | 2016-10-08 16:28 | NUR ---
PT BECAME EXTREMELY AGITATED, KICKING, TRYING TO PUNCH STAFF, ATTEMPTING TO BITE STAFF. DR MORALES AT BEDSIDE. PER MD GIVE 1MG IM HALDOL AND 1MG IV ATIVAN AT THIS TIME. SECURITY AT BEDSIDE. PT PLACED IN BILATERAL SOFT WRIST RESTRAINTS. IM HALDOL GIVEN TO LEFT THIGH AND IV ATIVAN TO LFA IV. RUG SETTER AXMINSTER, ANTONIA AND MST ASTU AT BEDSIDE. WILL MONITOR.
--- NOTE | 2016-10-08 18:41 | NUR ---
pt remains agitated, hallucinating, trying to climb oob, swearing, talking to people that aren't in the room. 2mg iv ativan given for ciwa of 13. will reassess.
[2016-10-09] VITALS (17 sets, daily range): BP systolic 84–143; BP diastolic 53–86
[2016-10-09 05:04] LABS: ABSOLUTE BASOPHIL COUNT 0 /CUMM (0.0-0.2); ABSOLUTE EOSINOPHIL COUNT 0.1 /CUMM (0.0-0.7); ABSOLUTE GRANULOCYTE CT 4.2 /CUMM (1.4-6.5); ABSOLUTE LYMPH COUNT 2.4 /CUMM (1.2-3.4); GRANULOCYTE % 56.9 % (42.2-75.2)
[2016-10-09 05:20] LABS: ABSOLUTE MONOCYTE COUNT 0.6 /CUMM (0.10-0.60); BASOPHIL % 0.3 % (0.0-2.0); EOSINOPHIL % 1.5 % (0-5); MEAN CORPUSCULAR HGB 32.3 PG (27.0-31.0); MEAN CORPUSCULAR HGB CONC 33.6 G/DL (33.0-37.0); MEAN CORPUSCULAR VOLUME 96.2 FL (81.0-99.0); MEAN PLATELET VOLUME 8.4 FL (7.4-10.4); PLATELET COUNT 225 /CUMM (130-400); RBC DISTRIBUTION WIDTH 15.2 % (11.5-14.5); RED BLOOD CELL CT 3.82 /CUMM (4.20-5.40); WHITE BLOOD CELL COUNT 7.3 /CUMM (4.8-10.8)
[2016-10-09 05:21] LABS: HEMATOCRIT 36.7 % (37-47)
--- NOTE | 2016-10-09 07:57 | RADIOLOGY REPORT ---
EXAMINATION: XR PORTABLE CHEST CLINICAL INFORMATION: Leukocytosis. COMPARISON: Chest 10/08/2016. TECHNIQUE: Portable AP view of the chest was obtained. FINDINGS: Both lungs are fairly well-expanded and clear of acute process. The heart size and pulmonary vascularity is normal. No gross bony abnormality seen. IMPRESSION: Unremarkable chest exam.
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
--- NOTE | 2016-10-09 11:22 | PN- CRCU ---
Subjective HPI/Critical Care Issues: The patient is awake and alert. She continues to be intermittently agitated. There were no overnight events. Objective Current Medications: Current Medications Sig/Stewart Start time Last Medication Dose Route Stop Time Status Admin Acetaminophen 650 MG Q6P PRN 10/08 0115 AC PO Acetaminophen/ 1 TAB Q6P PRN 10/08 0115 AC Hydrocodone Bitart PO Clindamycin 600 MG Q8H 10/08 0400 AC 10/09 Dextrose/Water 50 ML IV 0415 Cyanocobalamin/ 1 BAG DAILY 10/08 1159 AC 10/08 Thiamine/Pyridoxine IV 1350 Dextrose/Water 1,000 ML Haloperidol 1 MG Q6 10/08 1800 DC 10/08 IM 1633 Haloperidol 2 MG Q8P PRN 10/08 1630 AC IM Haloperidol 1 MG Q8P PRN 10/08 1430 DC IM Lorazepam 0.5 MG ONCE 10/13 0000 AC IV 10/13 0001 Lorazepam 0.5 MG Q6 10/11 2359 AC IV 10/12 1801 Lorazepam 0.5 MG ONCE ONE 10/11 1800 AC IV 10/11 1801 Lorazepam 1 MG Q6H 10/11 0000 AC IV 10/11 1201 Lorazepam 1.5 MG Q12H 10/10 0600 AC IV 10/10 1801 Lorazepam 1 MG Q12H 10/10 0000 AC IV 10/10 1201 Lorazepam 2 MG ONCE ONE 10/09 1800 AC IV 10/09 1801 Lorazepam 1.5 MG Q6H 10/09 0000 AC 10/09 IV 10/09 1201 0606 Lorazepam 0 Q1P PRN 10/08 2030 AC 10/09 IV 0946 Lorazepam 2 MG Q6 10/08 1800 DC 10/08 IV 10/08 2358 1713 Lorazepam 2 MG ONCE 10/08 1630 DC IV 10/08 1631 Lorazepam 2 MG Q2P PRN 10/08 1630 DC 10/08 IV 1835 Lorazepam 1 MG Q2P PRN 10/08 1630 DC 10/08 IV 1647 Lorazepam 2 MG Q6 10/07 2359 DC 10/08 IV 10/08 1801 1206 Lorazepam 2 MG Q2P PRN 10/07 1830 DC IV Magnesium Sulfate 1 GM Q2H 10/08 2030 DC 10/08 Dextrose/Water 100 ML IV 10/09 0029 2230 Magnesium Sulfate 1 GM ONCE ONE 10/08 0800 DC 10/08 Dextrose/Water 100 ML IV 10/08 1159 0925 Morphine Sulfate 1 MG Q4P PRN 10/08 0115 AC IV Potassium Chloride 10 MEQ Q1 10/08 0900 DC 10/08 IV 10/08 1101 1141 Potassium Chloride 20 MEQ Q13H 10/08 0900 DC 10/08 Sodium Chloride 1,000 ML IV 10/09 0559 2343 Sodium Chloride 1,000 ML Q13H 10/08 2345 DC 10/08 IV 0157 Vital Signs & I&O Last 24 Hrs of Vitals and I&O: Vital Signs Date Time Temp Pulse Resp B/P Pulse O2 O2 Flow FiO2 Ox Delivery Rate 10/09 0945 98.2 82 20 118/68 10/09 0800 98.1 68 15 110/70 10/09 0800 100 Room Air Room Air 10/09 0800 98.1 68 15 110/70 100 Room Air Room Air 10/09 0600 98.6 70 16 98/68 10/09 0400 98.6 70 15 98/60 10/09 0200 98.4 74 16 84/53 10/09 0000 98.4 70 16 108/64 10/08 2356 98.4 70 16 108/64 99 Room Air 10/08 2200 98.6 78 16 97/58 10/08 2104 98.6 78 18 112/74 10/08 2000 98.6 88 24 1438/70 10/08 1930 88 18 128/80 10/08 1835 88 20 124/78 10/08 1813 88 20 127/81 10/08 1745 98 18 125/73 10/08 1713 88 22 135/76 10/08 1647 97.6 96 20 126/70 10/08 1600 97.6 96 20 126/70 100 Room Air 10/08 1400 76 18 95/66 10/08 1200 97.0 68 18 110/60 10/08 1200 97.0 68 18 110/60 98 Room Air Intake & Output 10/09 1600 10/09 0800 10/09 0000 Intake Total 996 1842 Output Total 1400 2350 Balance -404 -508 Intake, IV 996 1842 Output, Urine 1400 2350 Patient 144 lb Weight Physical Exam General Appearance: lethargic, less confused, following commands Head: atraumatic, normal appearance Eyes: Bilateral: normal appearance, PERRL, EOMI Neck: supple Respiratory: normal breath sounds, no respiratory distress Cardiovascular: regular rate/rhythm Gastrointestinal: normal bowel sounds, soft Extremities: normal inspection, no edema Results Last 24 Hrs of Lab Results: Laboratory Tests 10/09/16 0430: Anion Gap 9, Estimated GFR 53 L, Glucose 90, Calcium 9.3, Phosphorus 3.5, Magnesium 1.9, Total Bilirubin 0.9, AST 89 H, ALT 42, Albumin 3.6, CBC w Diff NO MAN DIFF REQ, RBC 3.82 L, MCV 96.2, MCH 32.3 H, RDW 15.2 H, MPV 8.4, Gran % 56.9, Lymphocytes % 32.6, Monocytes % 8.7, Eosinophils % 1.5, Basophils % 0.3, Absolute Granulocytes 4.2, Absolute Lymphocytes 2.4, Absolute Monocytes 0.6, Absolute Eosinophils 0.1, Absolute Basophils 0, PUBS MCHC 33.6 10/08/16 1744: Anion Gap 11, Estimated GFR 48 L, Glucose 115 H, Calcium 9.3, Phosphorus 2.6, Magnesium 1.5 L, Total Bilirubin 0.9, AST 119 H, ALT 47, Creatine Kinase 3306 H, Albumin 3.8 Impression/Plan Impression/Plan Impression/Plan: 1. Polysubstance abuse and overdose with opiates. 2. ADRIANA - improving. 3. PTSD, borderline personality disorder, anxiety and depression. Recommendations: * Continue CIWA protocol and Ativan as needed. Monitor for withdrawal symptoms. * Continue to monitor for withdrawal. * Continue multivitamin, thiamine and folate. * Stop clindamycin, monitor off antibiotics. * Advance diet as tolerated. Maintain the patient on aspiration precautions. * Add DVT prophylaxis. * Continue to monitor in the critical care unit.
--- NOTE | 2016-10-09 15:44 | NUR ---
RECEIVED PATIENT AT 0800: PATIENT WAS DROWSY/AROUSABLE, ORIENTED TO PERSON AND PLACE. IN BILATERAL SOFT RESTRAINTS WITH A SITTER AND PULLING AT RESTRAINTS AT TIMES. ON ROOM AIR SATTING 99%, LUNGS CLEAR. NSR ON THE MONITOR 60S-70S, UP TO 90S WITH AGITATION. SBP=90S-100S. DENIES PAIN. HAVING VISUAL/AUDITORY/TACTILE HALLUCINATIONS AT TIMES. SKIN INTACT, BANANA BAG STARTED AT 125 MLS/HR AND NS WITH 20 MEQ K AT 125 MLS/HR IS ON HOLD WHILE THE BANANA BAG GOES IN. PATIENT IS NPO R/T ALTERED MENTAL STATUS, NON PRODUCTIVE COUGH, AND INTERMITTENT GARBLED SPEECH. PATIENT BECOMING INCREASINGLY AGITATED THE MORNING PROGRESSED. ATIVAN GIVEN ORDERED AND PER THE CIWA SLIDING SCALE. 7.5 MG GIVEN IN LESS THAN [address] KHAN AND [address] ARBOLEDA AWARE. HALIDOL IM 2MG GIVEN AT 1120 TRIGGERED PATIENT TO THRASH OUT OF THE RESTRAINTS, KICK AND THE STAFF, AND GRAB/RIP THIS RN'S ISOLATION OFF. SHE YELLED PROFANITIES AND THREATENED STAFF. ORDER #7 CALLED AND SECURITY PRESENT, PLACING FOUR POINT HARD RESTRAINTS. SITTER AND STAFF REMAINED SAFE AND PATIENT IS SAFELY RESTRAINED. SITTER AT THE BEDSIDE. RESTRAINT ORDERED UPDATED AND HALIDOL ORDER PLACED STANDING INSTEAD OF PRN. TO HOLD OFF ON ATIVAN AT THIS TIME PER DR. KHAN AND DR. MORALES SINCE PATIENT WAS SEDATED YESTERDAY FROM IV ATIVAN. CONTINUING TO MONITOR PATIENT'S SAFETY AND ASSESS FOUR POINT HARD RESTRAINTS Q1 HOUR.
--- NOTE | 2016-10-09 20:55 | NUR ---
PT RECEIVED IN 4PT HARD RESTRAINTS, AWAKE CONFUSED TO TIME AND HISTORY. SWEARING , THREATENING STAFF, LIMITS SET WITH GOALS FOR RELEASE EXPLAINED, ICE CREAM AND WATER GIVEN W/O DIFFICULTY SEEN BY TERMITE CONTROL TECHNICIAN.
--- NOTE | 2016-10-09 21:50 | PN- Psychiatry ---
Assessment/Plan Impression: 51 y/o woman w/ hx psychiatric tx, substance use hx w/ overdose, admitted w/ altered mental status. Attempted to evaluate her today, she was in beh restraints, lethargic, incoherent at times - but able to give some basic hx, that she had some family come visit her, that she has her own psychiatrist and takes risperdal consta (did not know last dose); but unable to recall circumstances leading to her admission and her mental status. Too agitated to give significantly more hx. Appears to be improving somewhat compared to previous notes. Continue haldol dosing; re-eval mental status by psych tuesday; need collateral regarding when she was last taking her medications, baseline mental status by her family. Suggestion: see above Subjective Subjective: see above
[2016-10-10] VITALS (14 sets, daily range): BP systolic 79–118; BP diastolic 46–76
[2016-10-10 05:37] LABS: ABSOLUTE BASOPHIL COUNT 0 /CUMM (0.0-0.2); ABSOLUTE EOSINOPHIL COUNT 0.1 /CUMM (0.0-0.7); ABSOLUTE GRANULOCYTE CT 3.5 /CUMM (1.4-6.5); ABSOLUTE LYMPH COUNT 2.9 /CUMM (1.2-3.4); ABSOLUTE MONOCYTE COUNT 0.5 /CUMM (0.10-0.60); BASOPHIL % 0.5 % (0.0-2.0); EOSINOPHIL % 1.9 % (0-5); GRANULOCYTE % 49.8 % (42.2-75.2); HEMATOCRIT 37.8 % (37-47); MEAN CORPUSCULAR HGB 32.1 PG (27.0-31.0); MEAN CORPUSCULAR HGB CONC 33.7 G/DL (33.0-37.0); MEAN CORPUSCULAR VOLUME 95.5 FL (81.0-99.0); PLATELET COUNT 236 /CUMM (130-400); RBC DISTRIBUTION WIDTH 14.9 % (11.5-14.5); RED BLOOD CELL CT 3.97 /CUMM (4.20-5.40); WHITE BLOOD CELL COUNT 7.1 /CUMM (4.8-10.8)
--- NOTE | 2016-10-10 09:50 | PN- CRCU ---
Subjective HPI/Critical Care Issues: The patient is awake and oriented to person and place. She remains in upper extremity hard restraints as she was extremely agitated and combative yesterday. Her respiratory status remained stable. Her blood pressures fluctuating noting that she is intermittently hypertensive. She remains afebrile. Objective Current Medications: Current Medications Sig/Stewart Start time Last Medication Dose Route Stop Time Status Admin Acetaminophen 650 MG Q6P PRN 10/08 0115 AC PO Acetaminophen/ 1 TAB Q6P PRN 10/08 0115 AC Hydrocodone Bitart PO Clindamycin 600 MG Q8H 10/08 0400 [place] 10/09 Dextrose/Water 50 ML IV 1121 Cyanocobalamin/ 1 BAG DAILY 10/08 1159 AC 10/09 Thiamine/Pyridoxine IV 1030 Dextrose/Water 1,000 ML Haloperidol 1 MG Q6 10/09 1315 AC 10/10 IM 0558 Haloperidol 2 MG Q8P PRN 10/08 1630 AC 10/09 IM 1120 Lorazepam 0.5 MG ONCE 10/13 0000 AC IV 10/13 0001 Lorazepam 0.5 MG Q6 10/11 2359 AC IV 10/12 1801 Lorazepam 0.5 MG ONCE ONE 10/11 1800 AC IV 10/11 1801 Lorazepam 1 MG Q6H 10/11 0000 IV 10/11 1201 Lorazepam 1.5 MG Q12H 10/10 0600 AC 10/10 IV 10/10 1801 0558 Lorazepam 1 MG Q12H 10/10 0000 AC 10/10 IV 10/10 1201 0013 Lorazepam 2 MG ONCE ONE 10/09 1800 DC 10/09 IV 10/09 1801 1854 Lorazepam 1.5 MG Q6H 10/09 0000 DC 10/09 IV 10/09 1201 1121 Lorazepam 0 Q1P PRN 10/08 2030 10/09 IV 1209 Morphine Sulfate 1 MG Q4P PRN 10/08 0115 AC IV Nicotine 14 MG DAILY 10/09 1101 10/09 TOP 1338 Potassium Chloride 20 MEQ Q13H 10/10 0330 10/10 Sodium Chloride 1,000 ML IV 10/11 0029 0552 Vital Signs & I&O Last 24 Hrs of Vitals and I&O: Vital Signs Date Time Temp Pulse Resp B/P Pulse O2 O2 Flow FiO2 Ox Delivery Rate 10/10 0800 97.4 68 18 100/60 01/29 0800 99 Room Air Room Air 10/10 0800 97.4 68 18 100/60 99 Room Air Room Air 10/10 0600 97.2 73 16 101/60 10/10 0400 97.2 72 18 103/68 10/10 0200 97.0 72 16 104/72 10/10 0000 97.0 70 18 103/64 10/10 0000 97.0 70 18 103/69 100 Room Air 10/09 2200 72 18 99/67 10/09 2000 97.5 75 18 120/60 10/09 1830 97.7 80 17 122/77 10/09 1630 97.7 94 22 100/70 10/09 1600 95 Room Air Room Air 10/09 1600 97.7 94 22 100/70 99 Room Air Room Air 10/09 1430 98.4 104 32 120/64 10/09 1330 98.4 94 26 113/64 10/09 1230 98.4 102 22 138/80 10/09 1200 98.4 95 16 143/86 10/09 1200 100 Room Air Room Air 10/09 1120 98.4 97 22 112/77 10/09 1045 98.4 85 22 112/68 10/09 0945 98.2 82 20 118/68 Intake & Output 10/10 1600 10/10 0800 10/10 0000 Intake Total 885 1480 Output Total 480 615 Balance 405 865 Intake, IV 885 1250 Intake, Oral 230 Output, Urine 480 615 Physical Exam General Appearance: comfortable, following commands Head: atraumatic, normal appearance Neck: supple Respiratory: normal breath sounds, no respiratory distress Cardiovascular: regular rate/rhythm Gastrointestinal: normal bowel sounds, soft Extremities: normal inspection, no edema Results Last 24 Hrs of Lab Results: Laboratory Tests 10/10/16 0450: Anion Gap 9, Estimated GFR 59 L, Glucose 86, Calcium 9.6, Phosphorus 4.5, Magnesium 1.4 L, Total Bilirubin 0.9, AST 60 H, ALT 40, Creatine Kinase 756 H , Albumin 3.4 L, CBC w Diff NO MAN DIFF REQ, RBC 3.97 L, MCV 95.5, MCH 32.1 H , RDW 14.9 H, MPV 9.0, Gran % 49.8, Lymphocytes % 40.7, Monocytes % 7.1, Eosinophils % 1.9, Basophils % 0.5, Absolute Granulocytes 3.5, Absolute Lymphocytes 2.9, Absolute Monocytes 0.5, Absolute Eosinophils 0.1, Absolute Basophils 0, PUBS MCHC 33.7 Impression/Plan Impression/Plan Impression/Plan: 1. Polysubstance abuse and overdose with opiates. 2. ADRIANA - improving. 3. PTSD, borderline personality disorder, anxiety and depression. Recommendations: * Continue CIWA protocol and Ativan as needed. Monitor for withdrawal symptoms. * Continue to monitor for withdrawal. * Continue multivitamin, thiamine and folate. * Attempt to release restraints. * Electrolyte repletion underway. * Monitor off antibiotics. * Advance diet as tolerated. Maintain the patient on aspiration precautions. * Continue to follow psychiatry recommendations. Appreciate input. * DVT prophylaxis. * Continue to monitor in the critical care unit.
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
--- NOTE | 2016-10-10 21:28 | NUR ---
PT TRYING TO GET OOB NEEDS MUCH ENCOURAGEMENT TO FOLLOW DIRECTIONS SITTER AT BEDSIDE SAFETY MAINTAINED, CONFUSED TO TIME, VERY BRISH SHORT TEMPURED.
[2016-10-11] VITALS (12 sets, daily range): BP systolic 91–142; BP diastolic 50–80
[2016-10-11 05:34] LABS: ABSOLUTE BASOPHIL COUNT 0 /CUMM (0.0-0.2); ABSOLUTE EOSINOPHIL COUNT 0.1 /CUMM (0.0-0.7); ABSOLUTE GRANULOCYTE CT 3.6 /CUMM (1.4-6.5); ABSOLUTE LYMPH COUNT 2.9 /CUMM (1.2-3.4); ABSOLUTE MONOCYTE COUNT 0.5 /CUMM (0.10-0.60); BASOPHIL % 0.3 % (0.0-2.0); HEMATOCRIT 36.2 % (37-47); MEAN CORPUSCULAR HGB 32.3 PG (27.0-31.0); MEAN CORPUSCULAR HGB CONC 33.7 G/DL (33.0-37.0); MEAN CORPUSCULAR VOLUME 96.1 FL (81.0-99.0); MEAN PLATELET VOLUME 8.7 FL (7.4-10.4); PLATELET COUNT 254 /CUMM (130-400); RBC DISTRIBUTION WIDTH 14.5 % (11.5-14.5); RED BLOOD CELL CT 3.77 /CUMM (4.20-5.40); WHITE BLOOD CELL COUNT 7.2 /CUMM (4.8-10.8)
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
--- NOTE | 2016-10-11 09:37 | PN- CRCU ---
Subjective HPI/Critical Care Issues: The patient is awake and alert. She is cooperative and follows commands. She states she does not feel well in general however overall she appears better. She is now eating. There were no overnight events reported. Objective Current Medications: Current Medications Sig/Stewart Start time Last Medication Dose Route Stop Time Status Admin Acetaminophen 650 MG Q6P PRN 10/08 0115 AC PO Acetaminophen/ 1 TAB Q6P PRN 10/08 0115 AC Hydrocodone Bitart PO Cyanocobalamin/ 1 BAG DAILY 10/08 1159 DC 10/10 Thiamine/Pyridoxine IV 2359 Dextrose/Water 1,000 ML Folic Acid 1 MG DAILY 10/12 1000 AC PO Haloperidol 1 MG Q6 10/09 1315 DC 10/10 IM 1335 Haloperidol 2 MG Q8P PRN 10/08 1630 AC 10/09 IM 1120 Lorazepam 0.5 MG ONCE 10/13 0000 AC IV 10/13 0001 Lorazepam 0.5 MG Q6 10/11 2359 AC IV 10/12 1801 Lorazepam 0.5 MG ONCE ONE 10/11 1800 AC IV 10/11 1801 Lorazepam 1 MG Q6H 10/11 0000 AC 10/11 IV 10/11 1201 0551 Lorazepam 1.5 MG Q12H 10/10 0600 DC 10/10 IV 10/10 1801 1900 Lorazepam 1 MG Q12H 10/10 0000 DC 10/10 IV 10/10 1201 1334 Lorazepam 0 Q1P PRN 10/08 2030 AC 10/09 IV 1209 Magnesium Oxide 400 MG ONCE ONE 10/11 0815 DC PO 10/11 0816 Magnesium Oxide 400 MG ONE ONE 10/10 1115 DC 10/10 PO 10/10 1116 1334 Morphine Sulfate 1 MG Q4P PRN 10/08 0115 AC IV Multivitamins 1 TAB DAILY 10/12 1000 AC PO Nicotine 14 MG DAILY 10/09 1101 AC 10/10 TOP 1301 Potassium Chloride 20 MEQ Q13H 10/10 0330 DC 10/10 Sodium Chloride 1,000 ML IV 10/11 0029 1730 Thiamine HCl 100 MG DAILY 10/12 1000 AC PO Vital Signs & I&O Last 24 Hrs of Vitals and I&O: Vital Signs Date Time Temp Pulse Resp B/P Pulse O2 O2 Flow FiO2 Ox Delivery Rate 10/11 0800 Room Air 10/11 0800 97.8 64 18 98/66 98 Room Air 10/11 0537 98.0 77 18 102/70 10/11 0400 98.4 81 16 92/57 10/11 0200 86 18 91/56 10/11 0000 98.4 88 16 94/56 10/11 0000 98.4 88 16 94/56 95 Room Air 10/10 2200 97.3 91 18 79/47 10/10 2000 97.3 107 20 104/70 10/10 1900 98.6 95 30 98/64 10/10 1800 98.6 96 21 98/50 10/10 1600 98.6 96 20 112/76 10/10 1600 98.6 96 20 112/76 96 Room Air Room Air 10/10 1600 97 Room Air Room Air 10/10 1400 98.8 94 28 87/70 10/10 1330 98.8 80 22 104/46 10/10 1200 98.8 72 18 98/64 10/10 1200 98 Room Air Room Air 10/10 1000 98.7 76 16 118/76 Intake & Output 10/11 1600 10/11 0800 10/11 0000 Intake Total 1400 Output Total 550 350 Balance -550 1050 Intake, IV 1000 Intake, Oral 400 Output, Urine 550 350 Patient 148 lb Weight Physical Exam General Appearance: comfortable, following commands Head: atraumatic, normal appearance Neck: supple Respiratory: normal breath sounds, no respiratory distress Cardiovascular: regular rate/rhythm Gastrointestinal: normal bowel sounds, soft Extremities: normal inspection, no edema Results Last 24 Hrs of Lab Results: Laboratory Tests 10/11/16 0450: Anion Gap 8, Estimated GFR 53 L, Glucose 94, Calcium 9.3, Phosphorus 4.7 H, Magnesium 1.6, Total Bilirubin 0.5, AST 32, ALT 32, Albumin 3.1 L, CBC w Diff NO MAN DIFF REQ, RBC 3.77 L, MCV 96.1, MCH 32.3 H, RDW 14.5, MPV 8.7, Gran % 50.0, Lymphocytes % 40.5, Monocytes % 7.2, Eosinophils % 2.0, Basophils % 0.3, Absolute Granulocytes 3.6, Absolute Lymphocytes 2.9, Absolute Monocytes 0.5, Absolute Eosinophils 0.1, Absolute Basophils 0, PUBS MCHC 33.7 Impression/Plan Impression/Plan Impression/Plan: 1. Polysubstance abuse and overdose with opiates. 2. ADRIANA - improving. 3. PTSD, borderline personality disorder, anxiety and depression. Recommendations: * Continue CIWA protocol and Ativan as needed. Monitor for withdrawal symptoms. * Continue multivitamin, thiamine and folate. * Electrolyte repletion underway. * Monitor off antibiotics. * Advance diet as tolerated. * Continue to follow psychiatry recommendations. Appreciate input. * DVT prophylaxis. * Continue one-to-one sitter. * Downgrade to buySAFE.
--- NOTE | 2016-10-11 11:37 | NUR ---
REPORT GIVEN TO GRANT DESAI FOR TRANSFER TO [facility] ROOM 238. NOTIFIED PHYLLIS OF TRANSFER TO [facility], WHO WILL NOTIFY PATIENT'S BOYFRIEND OF THIS.
--- NOTE | 2016-10-11 13:08 | PN- Psychiatry ---
Assessment/Plan Impression: This 51 F had been followed by Renetta Aberntahy APRN, at [facility], and had her last visit there in May,. She missed the following 3 regularly sheduled monthly visits there, but VNA by Fei Tobar RN, from [facility] continued for every 2 week risperidone Consta injections until the last on 09/11. Nurse Ekaterina has followed this patient for about 10 years. He could not locate the patient for the next nursing visit and Consta injection, as she had moved without notifying anyone. She was discharged from [facility] and [facility] on . Per [facility] notes, the patient is irritable, anxious, and antisocial at most office visits. Last psychotropic medications, per [facility]: 1. Risperidone 50 mg/2 mL Consta, inject 50 mg (2 mL) IM every 2 weeks, last on 09/11/16 2. Risperidone 1 mg PO 2X/day PRN 3. Quetiapine 25 mg PO 3X/day PRN 4. Trihexyphenidyl 2 mg PO 2X/day The patient has been recieving haloperidol 1 mg IM every 6 hours for management of hallucinosis, which has now resolved. This can be stopped and an oral dose of risperidone started, which will need titration as we move forward. (Haloperidol 4 mg daily is roughly equivalent to risperidone 2 mg daily.) Suggestion: 1. I have cancelled haloperidol and ordered risperidone 1 mg PO 2X/day. a. Monitor and replete potassium and magenesium to the upper portion of the normal ranges. b. Monitor EKG and hold the med if arrhythmia or if QTc greater than 475 mS. Last result on 10/10/16 SR 89bpm, QTc 448 mS. c. No movement disorder noted today; we will not restart trihexyphenidyl/Artane at this time. 2. I have assumed control of the lorazepam detox protocol. 3. Continue 1:1 sitter for suicidality. 4. Please advise when the patient is clear cognitively and medically. We expect that she will need to transfer to acute inpatient psychiatry. 5. The patient may not leave the hospital AMA, or otherwise. A signed PEC is in the chart. We will continue to follow along with you. Michell Brooks APRN, Pager [phone] Subjective Subjective: This is my first interview with the patient. She reported to the nurse when transferred from the ICU to [facility] just now that she feels disoriented. She had pulled her IV out while being transported. The patient is calm with no voluntary speech, minimally cooperative. She is alert and oriented. She denies auditory, tactile or visual hallucinations. She reports she feels safe here, but she does not feel safe where she is staying with a friend. The patient denies current suicidal ideation, but admits to a suicide attempt, which led to her hospitalization, by ingesting a whole bottle of Seroquel along with alcohol. There may have been other substances, but the patient stopped responding to questions. I informed her that we will transfer her to acute inpatient psychiatry when she is medically cleared. The patient has poor insight and judgment. Objective Current Medications: Current Medications Sig/Stewart Start time Last Medication Dose Route Stop Time Status Admin Acetaminophen 650 MG Q6P PRN 10/08 0115 AC PO Acetaminophen/ 1 TAB Q6P PRN 10/08 0115 AC Hydrocodone Bitart PO Folic Acid 1 MG DAILY 10/12 1000 AC PO Haloperidol 2 MG TID PRN 10/11 1215 AC PO Haloperidol 1 MG Q6 10/09 1315 DC 10/10 IM 1335 Haloperidol 2 MG Q8P PRN 10/08 1630 DC 10/09 IM 1120 Lorazepam 0.5 MG ONE ONE 10/13 2355 AC PO 10/13 2356 Lorazepam 0.5 MG ONCE 10/13 0000 CAN IV 10/13 0001 Lorazepam 0.5 MG Q6 10/11 2359 DC IV 10/12 1801 Lorazepam 0.5 MG ONE ONE 10/11 2355 AC PO 10/11 2356 Lorazepam 0.5 MG ONCE ONE 10/11 1800 CAN IV 10/11 1801 Lorazepam 0.5 MG ONE ONE 10/11 1800 AC PO 10/11 1801 Lorazepam 1 MG Q1P PRN 10/11 1215 AC PO Lorazepam 1 MG Q6H 10/11 0000 DC 10/11 IV 10/11 1201 0551 Lorazepam 1.5 MG Q12H 10/10 0600 DC 10/10 IV 10/10 1801 1900 Lorazepam 0 Q1P PRN 10/08 2030 DC 10/09 IV 1209 Magnesium Oxide 400 MG ONCE ONE 10/11 0815 DC 10/11 PO 10/11 0816 1055 Morphine Sulfate 1 MG Q4P PRN 10/08 0115 AC IV Multivitamins 1 TAB DAILY 10/12 1000 AC PO Nicotine 14 MG DAILY 10/09 1101 AC 10/11 TOP 1055 Potassium Chloride 20 MEQ Q13H 10/10 0330 DC 10/10 Sodium Chloride 1,000 ML IV 10/11 0029 1730 Thiamine HCl 100 MG DAILY 10/12 1000 AC PO Results Last 24 Hrs of Labs/Mics: Laboratory Tests 10/11 0450 Chemistry Sodium (137 - 145 mmol/L) 138 Potassium (3.5 - 5.1 mmol/L) 4.6 Chloride (98 - 107 mmol/L) 105 Carbon Dioxide (22 - 30 mmol/L) 26 Anion Gap (5 - 16) 8 BUN (7 - 17 mg/dL) 21 H Creatinine (0.5 - 1.0 mg/dL) 1.1 H Estimated GFR (>60 ml/min) 53 L Glucose (65 - 99 mg/dL) 94 Calcium (8.4 - 10.2 mg/dL) 9.3 Phosphorus (2.5 - 4.5 mg/dL) 4.7 H Magnesium (1.6 - 2.3 mg/dL) 1.6 Total Bilirubin (0.2 - 1.3 mg/dL) 0.5 AST (14 - 36 U/L) 32 ALT (9 - 52 U/L) 32 Albumin (3.5 - 5.0 g/dL) 3.1 L Hematology CBC w Diff NO MAN DIFF REQ WBC (4.8 - 10.8 /CUMM) 7.2 RBC (4.20 - 5.40 /CUMM) 3.77 L Hgb (12.0 - 16.0 G/DL) 12.2 Hct (37 - 47 %) 36.2 L MCV (81.0 - 99.0 FL) 96.1 MCH (27.0 - 31.0 PG) 32.3 H RDW (11.5 - 14.5 %) 14.5 Plt Count (130 - 400 /CUMM) 254 MPV (7.4 - 10.4 FL) 8.7 Gran % (42.2 - 75.2 %) 50.0 Lymphocytes % (20.5 - 51.1 %) 40.5 Monocytes % (1.7 - 9.3 %) 7.2 Eosinophils % (0 - 5 %) 2.0 Basophils % (0.0 - 2.0 %) 0.3 Absolute Granulocytes (1.4 - 6.5 /CUMM) 3.6 Absolute Lymphocytes (1.2 - 3.4 /CUMM) 2.9 Absolute Monocytes (0.10 - 0.60 /CUMM) 0.5 Absolute Eosinophils (0.0 - 0.7 /CUMM) 0.1 Absolute Basophils (0.0 - 0.2 /CUMM) 0 PUBS MCHC (33.0 - 37.0 G/DL) 33.7
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
--- NOTE | 2016-10-11 16:27 | NUR ---
SPEECH THERAPY: CHART REVIEWED. ATTEMPTED TO SEE PT FOR FOLLOWUP RE: SWALLOWING. OF INITIAL EVAL ON 10/08, PT WAS NPO BUT WAS UPGRADED PER MD 10/10 TO REGULAR AND THINS. PT WAS JUST TRANSFERRED FROM ICU TO [facility] AND PER RN AND SITTER ASSIGNED TO PT, SHE HAS BEEN TOLERATING REGULAR DIET WITHOUT DIFFICULTIES. PT HERSELF WAS SLEEPING ON MY ARRIVAL BUT ROUSED TO VERBAL STIM AND STATED "SOMEONE'S ALWAYS WAKING ME UP. I'M SWALLOWING FINE. I DON'T HAVE ANY PROBLEM. YOU CAN GO NOW." WILL D/C SKILLED ST. PLEASE RE-REFER IF ANY DIFFIUCLTY SWALLOWING NOTED. D/W RN NATHAN.
--- NOTE | 2016-10-11 18:37 | NUR ---
PATIENT IS DROWSY BUT AROUSABLE. VITAL SIGNS STABLE. ON ROOM AIR NO DISCOMFORT NOTED AT THIS TIME. 1800 ATIVAN HELD DUE TO DROWSYNESS. BRONZER AWARE. WILL CONTINUE TO MONITOR
[2016-10-12 02:00] VITALS: BP 100/62
[2016-10-12 06:00] VITALS: BP 96/60
[2016-10-12 06:59] VITALS: BP 100/62; BP 96/60
--- NOTE | 2016-10-12 08:51 | PN- Housestaff ---
IVAN AHUMADA,MATIAS 10/12/16 0850: Subjective Follow-up For: Drug overdose Subjective: Patient was sleeping this morning. Was able to give responses to questoins. Denies over night event. Sitter in the room Denies SI, nausea, vomiting, abdominal pian, diarrhea. Review of Systems Constitutional: Reports: see HPI. Objective Last 24 Hrs of Vital Signs/I&O Vital Signs Date Time Temp Pulse Resp B/P Pulse O2 O2 Flow FiO2 Ox Delivery Rate 10/12 195 97.4 84 20 98/60 98 Room Air 10/12 1421 98.2 80 20 120/68 94 10/12 1145 98.4 63 20 122/72 94 10/12 0659 97.6 66 16 96/60 100 Room Air 10/12 0600 97.6 66 16 96/60 10/12 0200 97.6 70 16 100/62 10/12 0200 97.6 70 16 100/62 99 Room Air Intake & Output 10/12 1600 10/12 0800 10/12 0000 Intake Total 600 100 120 Output Total 350 Balance 600 100 -230 Intake, IV 0 Intake, Oral 600 100 120 Number 0 Bowel Movements Output, Urine 350 Physical Exam General Appearance: Alert, Oriented X3, Cooperative, No Acute Distress HEENT: Atraumatic Cardiovascular: Regular Rate, Normal S1, Normal S2, No Murmurs Lungs: Clear to Auscultation Abdomen: Normal Bowel Sounds, Soft Extremities: No Clubbing, No Cyanosis, No Edema Current Medications: Current Medications Sig/Stewart Start time Last Medication Dose Route Stop Time Status Admin Acetaminophen 650 MG Q6P PRN 10/08 0115 DCD PO Acetaminophen/ 1 TAB Q6P PRN 10/08 0115 DCD Hydrocodone Bitart PO Folic Acid 1 MG DAILY 10/12 1000 DCD 10/12 PO 1042 Lorazepam 1 MG BID 10/12 2200 DCD PO Lorazepam 0.5 MG Q6 10/12 0600 DC 10/12 PO 10/13 0601 0645 Lorazepam 1 MG .STK-MED ONE 10/12 0122 DC PO 10/12 0123 Lorazepam 0.5 MG Q6 10/11 2359 DC IV 10/12 1801 Lorazepam 2 MG Q2P PRN 10/11 1315 DCD 10/12 IV 1525 Lorazepam 1 MG Q2P PRN 10/11 1315 DCD IV Lorazepam 1 MG Q6 10/11 1300 DC 10/12 PO 10/11 2359 0119 Morphine Sulfate 1 MG Q4P PRN 10/08 0115 DCD IV Multivitamins 1 TAB DAILY 10/12 1000 DCD 10/12 PO 1042 Nicotine 14 MG DAILY 10/09 1101 DCD 10/12 TOP 1033 Risperidone 1 MG BID 10/11 1244 DCD 10/12 PO 1042 Thiamine HCl 100 MG DAILY 10/12 1000 DCD 10/12 PO 1042 Last 24 Hrs of Lab/Wicho Results Last 24 Hrs of Labs/Mics: Laboratory Tests 10/12/16 0615: Anion Gap 8, Estimated GFR 59 L, BUN/Creatinine Ratio 19.0, CBC w Diff NO MAN DIFF REQ, RBC 3.83 L, MCV 95.6, MCH 32.1 H, RDW 14.3, MPV 9.3, Gran % 47.8, Lymphocytes % 42.4, Monocytes % 7.5, Eosinophils % 1.8, Basophils % 0.5, Absolute Granulocytes 3.5, Absolute Lymphocytes 3.1, Absolute Monocytes 0.5, Absolute Eosinophils 0.1, Absolute Basophils 0, PUBS MCHC 33.6 Assessment/Plan Assessment: 51/F with PMH of anxiety, depression and bipolar disorder, who was brought to the ED for chief complaint of AMS. Per EMS, patient was found with mild respiratory depression, AMS and her close contact at home informed EMS that patient had been recently using injectable drugs. She attempted to swallow a bunch of Seroquel with alcohol prior to admission. Patient became semi- responsive after receiving Narcan in the feild. 1. AMS: Patient was admitted in ICU.She was found to be in a ADRIANA which was attributed to increased creatinine kinase and respiratory alkalosis on admission which has now resolved with aggressive IV fluids. Currently her kidney functions are back to baseline. Patient had history of unknown substance prior to admission. Cocaine level was not obtainable secondary to interfering substance. She was watched off of beta blockers in ICU. Her mentation slowly improved. Was neen by History of bipolar disorder and has been following up with Renetta Abernathy APRN , at [facility], and had her last visit there in May,. She missed the following 3 regularly sheduled monthly visits there, but VNA by Fei Tobar RN, from [facility] continued for every 2 week risperidone Consta injections until the last on 09/11/2016. Nurse Ekaterina has followed this patient for about 10 years. He could not locate the patient for the next nursing visit and Consta injection, as she had moved without notifying anyone. She was discharged from [facility] and [facility] on 09/27/16. She cannot leave the hospital AGAINST MEDICAL ADVICE. Signed PEC form is in the chart. Plan is to transfer her to inpatient psychiatry on to another psych facility. we believe that she is medically stable with a creatinine to baseline. Was started on risperidone for her bipolar disorder and 1 mg twice a day. Her symptoms could be a component of bipolar disorder with psychosis. Discussed with psychiatry about increasing the risperidone dose as she is close to 3.5 mg at home. We will await further recommendation. Continue on 1: 1 sitter. Avoid nephrotoxic medications, encourage by mouth feeds. FULLCODE STATUS Problem List: 1. Opiate overdose 2. ADRIANA (acute kidney injury) 3. Heroin overdose 4. Narcotic overdose Pain Ratin Pain Location: back Pain Goal: Remain pain free Pain Plan: as menioned in med list Tomorrow's Labs & Rationales: not needed Consulting Request: Consulting Specialty: Psychiatry JESUS AHUMADA,RICARDO 10/12/16 1121: Attending MD Review Statement Attending Statement Attending MD Statement: examined this patient, discuss w/resident/PA/LEASING ASSISTANT, agreed w/resident/PA/LEASING ASSISTANT, reviewed EMR data (avail), discussed with nursing, reviewed images, amended to note Attending Assessment/Plan: Patient seen and examined, she was crying. She said that she is worried about not having any place to go and she gets discharged from the hospital. Patient is feeling anxious. She has 1:1 sitter. Vital Signs Date Time Temp Pulse Resp B/P Pulse O2 O2 Flow FiO2 Ox Delivery Rate 10/12 0659 97.6 66 16 96/60 100 Room Air 10/12 0200 97.6 70 16 100/62 99 Room Air 10/11 2056 98.2 96 18 92/62 97 Room Air 10/11 1800 98.6 88 16 140/80 10/11 1655 98.6 88 16 140/80 98 Room Air 10/11 1600 Room Air 10/11 1600 98.6 88 16 140/80 10/11 1348 97.2 90 20 142/72 97 10/11 1206 98.1 97 20 140/80 99 on exam; aox3, nad. crying cv; s1,s2, rrr. resp; clear abd; soft, nt, bs+ ext; no edema. Laboratory Tests 10/12 0615 Chemistry Sodium (137 - 145 mmol/L) 137 Potassium (3.5 - 5.1 mmol/L) 4.3 Chloride (98 - 107 mmol/L) 105 Carbon Dioxide (22 - 30 mmol/L) 24 Anion Gap (5 - 16) 8 BUN (7 - 17 mg/dL) 19 H Creatinine (0.5 - 1.0 mg/dL) 1.0 Estimated GFR (>60 ml/min) 59 L BUN/Creatinine Ratio (7 - 25 %) 19.0 Hematology CBC w Diff NO MAN DIFF REQ WBC (4.8 - 10.8 /CUMM) 7.3 RBC (4.20 - 5.40 /CUMM) 3.83 L Hgb (12.0 - 16.0 G/DL) 12.3 Hct (37 - 47 %) 36.6 L MCV (81.0 - 99.0 FL) 95.6 MCH (27.0 - 31.0 PG) 32.1 H RDW (11.5 - 14.5 %) 14.3 Plt Count (130 - 400 /CUMM) 249 MPV (7.4 - 10.4 FL) 9.3 Gran % (42.2 - 75.2 %) 47.8 Lymphocytes % (20.5 - 51.1 %) 42.4 Monocytes % (1.7 - 9.3 %) 7.5 Eosinophils % (0 - 5 %) 1.8 Basophils % (0.0 - 2.0 %) 0.5 Absolute Granulocytes (1.4 - 6.5 /CUMM) 3.5 Absolute Lymphocytes (1.2 - 3.4 /CUMM) 3.1 Absolute Monocytes (0.10 - 0.60 /CUMM) 0.5 Absolute Eosinophils (0.0 - 0.7 /CUMM) 0.1 Absolute Basophils (0.0 - 0.2 /CUMM) 0 PUBS MCHC (33.0 - 37.0 G/DL) 33.6 A/P; 51/F with PMH of anxiety, depression and bipolar disorder who was admitted with altered mental state likely secondary to drug overdose as well as suicide attempt. Patient had taken opiate and some kind of cocaine. On admission patient had acute kidney injury as well as high anion gap. Creatinine came back to normal and anion gap has resolved. Patient also has a history of drinking alcohol. Currently she is on scheduled as well as when necessary Ativan per [facility]. She is also getting multivitamin, folate and thiamine. Risperidone was started per psychiatry. Please add pharmacologic DVT prophylaxis. Continue one-to-one sitter and patient will ultimately need to go to inpatient psych.
[2016-10-12 09:06] LABS: ABSOLUTE BASOPHIL COUNT 0 /CUMM (0.0-0.2); ABSOLUTE EOSINOPHIL COUNT 0.1 /CUMM (0.0-0.7); ABSOLUTE GRANULOCYTE CT 3.5 /CUMM (1.4-6.5); ABSOLUTE LYMPH COUNT 3.1 /CUMM (1.2-3.4); ABSOLUTE MONOCYTE COUNT 0.5 /CUMM (0.10-0.60); BASOPHIL % 0.5 % (0.0-2.0); EOSINOPHIL % 1.8 % (0-5); GRANULOCYTE % 47.8 % (42.2-75.2); HEMATOCRIT 36.6 % (37-47); MEAN CORPUSCULAR HGB 32.1 PG (27.0-31.0); MEAN CORPUSCULAR HGB CONC 33.6 G/DL (33.0-37.0); MEAN CORPUSCULAR VOLUME 95.6 FL (81.0-99.0); MEAN PLATELET VOLUME 9.3 FL (7.4-10.4); PLATELET COUNT 249 /CUMM (130-400); RBC DISTRIBUTION WIDTH 14.3 % (11.5-14.5); RED BLOOD CELL CT 3.83 /CUMM (4.20-5.40); WHITE BLOOD CELL COUNT 7.3 /CUMM (4.8-10.8)
[2016-10-12 11:45] VITALS: BP 122/72
--- NOTE | 2016-10-12 13:31 | NUR ---
Referral received yesterday morning via electronic orde entry. This patient is a 51 year old woman, admitted to the hospital on 10/07/16 with a drug overdose. Patient was initially admitted to the [facility], requiring restraints. She has since improved and is now on General Medicine. Notes from psychiatry appreciated; patient has hsitory of treatment for issues at [facility] in [place], but has not been seen since the fall. Had weekly home care nursing until earlier this month. Acknowledge that intent is to transfer patient to inpatient psychiatry when medically stable. Will follow peripherally.
[2016-10-12 14:21] VITALS: BP 120/68
[2016-10-12] MEDS ORDERED: FOLIC ACID1 M1 PO (15:33)
[2016-10-12] MEDS ORDERED: LORAZEPAM1 M1 PO (15:34)
[2016-10-12] MEDS ORDERED: ONE DAILY MULT1 EAC2 PO (15:34)
[2016-10-12] MEDS ORDERED: VITAMIN B-1100 MG PO (15:34)
[2016-10-12] MEDS ORDERED: RISPERDAL1 M1 PO (15:35)
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
--- NOTE | 2016-10-12 17:42 | NUR ---
SPOKE WITH RAILROAD CAR CLEANER IN CPS ABOUT CONCERN OF PT'S MRSA. CLARIFIED MRSA HX WITH MD KO. PT TESTED FOR MRSA IN NOSTRILS UPON THIS ADMISSION TO HOSPITAL. PT'S SKIN IS INTACT. RAILROAD CAR CLEANER IN CPS AWARE. WILL CONTINUE TO MONITOR.
[2016-10-12 19:54] VITALS: BP 98/60
--- NOTE | 2016-10-12 20:44 | NUR ---
REPORT GIVEN TO JOHAN IN CPS. PT A/V/OX3. IND OOB, STEADY GAIT. SKIN INTACT. ON ISO FOR MRSA IN THE NARES. CPS AWARE. PT DENIES PAIN. IV DISCONTINUED. DISCHARGE PAPERWORK COMPLETED AND SIGNED. PT UNDERSTANDS POC. PEC BROUGHT DOWN TO CPS BY VICKI FROM PSYCH. CHAD QUILES DOWN WITH PATIENT. SECURITY CALLED FOR ESCORT. WILL CONTINUE TO MONITOR.
== END 2016-10-12 21:03 | DRG 917 ==
LOC: ENRESERVDT → ENRESERVTM → ERH 14:16 → 2NA 18:24 → ERHI 18:24 → CRI 18:24 → EDBEDREQ 18:34 → CRI 21:22 → ERHI 10-08 01:45 → CRI 10-08 01:47 → 2NA 10-11 11:51
PROVIDERS: Emergency Medicine; Internal Medicine; Preventive Medicine Public Health & General Preventive Medicine; Student in an Organized Health Care Education/Training Program; ADMIT Hospitalist
DX: T40.1X4A Poisoning by heroin, undetermined, initial encounter (principal); G92 Toxic encephalopathy; N17.9 Acute kidney failure, unspecified; E87.0 Hyperosmolality and hypernatremia; E87.2 Acidosis; E87.3 Alkalosis; F19.251 Other psychoactive substance dependence with psychoactive substance-induced psychotic disorder with hallucinations; T42.4X4A Poisoning by benzodiazepines, undetermined, initial encounter; Y92.009 Unspecified place in unspecified non-institutional (private) residence as the place of occurrence of the external cause; F10.20 Alcohol dependence, uncomplicated; F31.9 Bipolar disorder, unspecified
CPT/HCPCS: 2NAP; 82520; 84133; 84300; CCU; 36415; 80307; 81001; 81025; 82436; 82570; 84600; 87040; 87086; 93005; 93010; 95816; 96372; 96374; 96375; 99232; 99291; G0480; J1630; J3490; J7060

== ENCOUNTER 2016-10-12 15:20 | Inpatient (IN) | payer OTHER, MEDICARE ==
[~2016-10-12] VITALS: Ht 157.5 cm; Wt 61.0 kg
[2016-10-12] MEDS ORDERED: FOLIC ACID1 M1 PO (15:33)
[2016-10-12] MEDS ORDERED: VITAMIN B-1100 MG PO (15:34)
[2016-10-12] MEDS ORDERED: LORAZEPAM1 M1 PO (15:34)
[2016-10-12] MEDS ORDERED: ONE DAILY MULT1 EAC2 PO (15:34)
[2016-10-12] MEDS ORDERED: RISPERDAL1 M1 PO (15:35)
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
--- NOTE | 2016-10-12 22:24 | NUR ---
PT ARRIVED VIA WHEELCHAIR TO UNIT ALERT ORIENTED VSS. PT ASKING IF SHE COULD LEAVE AMA. EMOTIONAL SUPPORT GIVEN INTERVIEW OBTAINED PT. ORIENTED TO SURROUNDINGS. DURING INTERVIEW PT. BEGAN TO CRY STATING " I HAVE NO SUPPORT NO ONE". VERY DIFFICULT TO INTERVIEW PACING AROUND ROOM. NOT GIVING FULL INFORMATION THIS RN COULD SENSE SHE WAS HOLDING BACK WHEN QUESTIONS WERE ASKED. MEDICATED WITH PRESCRIBED MEDS AND A PRN THEN TO ROOM. PT. STATED WILL NOT HURT SELF ON THE UNIT.
[2016-10-13] VITALS (7 sets, daily range): BP systolic 92–135; BP diastolic 58–75
--- NOTE | 2016-10-13 12:11 | NUR ---
PT ATTENDED PLANNING MEETING AND RESTING IN BEDROOM AND "FELL ASLEEP" UNTIL RECENTLY, EXPLAINED IT WAS BECAUSE SHE WAS "DETOXING", BEGAN TO BECOME SLIGHTLY TEARFUL BUT OVERALL STABLE - MEETING WITH PAULA (SAND DIGGER NOW), CALM, COOPERATIVE WITH STAFF.
--- NOTE | 2016-10-13 12:50 | CPS MD/APRN INITIAL ASSE PSYCH ---
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 Chief Complaint: States that she stopped getting her risperdal consta injections in August. She had been evicted from her apartment, and she did not get back in contact with visiting nurse. Reaction to Hospitalization: Sad, quiet. Cooperative. History of Present Illness Onset of Illness: Chronic. "I started drinking when I was [age] years old." Circumstances Leading to Admission: Patient was brought in to the ER by ambulance on October 07, 2016, displaying erratic and combative behavior. An unknown person called 911 to say that the patient was not waking up. Her urine toxicology screen was positive for opiates, benzodiazepines, and an unknown substance appears to have confounded the cocaine screen. She was admitted to the ICU for altered mental status, and then to inpatient psychiatry. Problem(s) Justifying Need for Admission: EtOH withdrawal Past Psychiatric History Past Diagnosis(es)- if any: Bipolar I disorder, mixed, mainly irritable type with rapid cycling Alcohol use disorder, severe, recurrent Opioid dependence Benzodiazepine use disorder Substance-induced mood disorder History of PTSD with "flashbacks" Borderline P.D., severe. Past Precipitating Factors- if any: Alcohol and substance abuse. - Include inpatient and outpatient treatment Treatment History: Patient reports many psychiatric hospitalizations including here, [facility]. She was last seen on [facility] in 2007. History of Suicide Attempts or Gestures Reports at least 3 or 4 suicidal attempts in the past. Substance Abuse History: EtOH, polysubstance abuse. Allergies: Coded Allergies: Penicillins (UNKNOWN 10/07/16) Home Med List: Risperdal Consta 50 MG/2 ML SYRINGE 50 MG IM Q2W BIPOLAR Trihexyphenidyl HCl 2 MG TABLET 1 TAB PO BID - Include any medical condition(s) that may - impact the patient's recovery/remission Past History Medical History Neurological: NONE EENT: NONE Cardiovascular: NONE Respiratory: NONE Gastrointestinal: NONE Hepatic: NONE Renal: NONE Musculoskeletal: HX. 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 Suicides: Denies Social History Living Situation: Had been living with her boyfriend, Arvind Guadalupe. They were recently evicted. Currently she has been staying on a friend's couch. Significant Relationships (family/friends): Boyfriend Arvind Guadalupe. Education: [employer] graduate. 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 Vocation/Occupation: Disability for mental health since 1997. Legal: No pending cases. Healthly Behaviors Screening Tobacco Screening Tobacco Use from ED Docu: Current Daily Use Daily Tobacco Use Amount/Type: => 5 Cigarettes daily - If tobacco counseling indicated - the following topics are required. - #1 Recognizing dangerous situations. - #2 Coping Skills. - #3 Basic information about quitting. Status of Tobacco Cessation Counseling: #1, #2 AND #3 Completed Cessation Med Status: Nicotine Patch Ordered Alcohol Screening - ETOH screen POS if BAL >=80 or Audit-C>= M4/F3 Audit-C Score from Diag Assess: 8 Blood Alcohol Level: Lab Serum Alcohol < 10.0 MG/DL 10/07/16 1437 Alcohol Use Screening Results: Pos per Audit C &/or BAL - If ETOH counseling indicated - the following topics are required. - #1 Express concern about the patient's - drinking at unhealthy levels, include informing - of national norms for moderate drinking: - men <= 14 drinks/week, max 4 drinks/occasion - women <= 7 drinks/week, max 3 drinks/occasion - #2 Providing feedback, including linking alcohol to - negative physical effects (liver injury, hypertension) - negative emotional effects (relationship problems and - depression) - negative occupational consequences (reduced work - performance) - #3 Advising the patient to abstain from alcohol or - to drink below national norms for moderate drinking - (as listed above). Status of ETOH Use Counseling: #1, #2 AND #3 Completed. Metabolic Screening - Screen if on a Neuroleptic Medication - Metabolic screening should include: - Blood Pressure, BMI, Glucose or Hgb A1c, & a - Lipid profile from within the past 365 days. Metabolic Screening () Not Applicable, patient not on a neuroleptic. OR ([x]) Patient on a neuroleptic(s) . Enter below results for Glucose or Hemoglobin A1C, and lipid panel if obtained during the last 365 days. BMI: 24.600 Blood Pressure: 122/70 Laboratory Results (If applicable): Labs ordered and pending. Exam and Plan Mental Status Examination Ambulation Status: Ambulates with steady gait. Appearance: Disheveled Attitude towards examiner: cooperative Psychomotor activity: wnl Behavior: cooperative Quality of speech: Speach is well articulated, goal directed, average in rate, volume and tone. Affect: Congruent Mood: Sad, anxious Suicidal Ideation: Denies, at this time. Homicidal Ideation: Denies Hallucinations: Denies Paranoid/Delusional Material: Denies. It was unclear what the patient meant by the following statement: "I am a warrior. I am in spiritual warfare against the devil." Difficulties with thought organization: WNL Insight: Fair Judgment: Poor Orientation: A&Ox3. Cognition: wnl Memory Function: wnl Estimate of intellectual functioning: Average Assets/Strengths Patient Identified Assets/Strengths: "I am a warrior. I am in spiritual warfare against the devil." Impression/Plan Impression and Plan: This is a 51 year old woman, with a life long history of alcohol and substance abuse, mental illness, and suicidal ideation. She had been shayna while taking risperidal consta. Her last dose was in August, but then was lost to Visiting Nurse follow-up after she was evicted from her apartment. During the time she was taking the injectable medication, she was also drinking approx one pint of vodka daily. Although she states that she knows that drinking has ruined her life, she also has no intention to discontinue drinking alcohol after discharge. Plan: Continue risperdal PO, and transition to risperdal consta IM injection. - Include all active medical diagnosis that require tx DSM 5 Diagnosis(es): Bipolar I disorder, mixed, mainly irritable type with rapid cycling Alcohol use disorder, severe, recurrent Opioid dependence Benzodiazepine use disorder Substance-induced mood disorder History of PTSD with "flashbacks" Borderline P.D., severe. - Initial Tx Plan for Active Psych & Medical Conditions Treatment Plan: PLAN: The patient will be monitored on the unit for safety, alcohol withdrawal, depression, mood stability and suicidal ideation. Additional information is needed from collaterals, including her boyfriend. Anticipate once clinically stable, that the patient will be discharged and be referred to [facility]. Housing will be discussed with the patient. - Factors that would help patient function - in a less restrictive setting. Factors: Alleviation of depression, mood stability.
--- NOTE | 2016-10-13 14:08 | PN- Att Addend ---
Attending Addendum Attending Brief Note Patient seen and examined, feels well. She was transferred to Inpatient Psychiatry yesterday. She did complain of feeling some hot flashes from menopause. Currently denies any aches or pains. Vital Signs Date Time Temp Pulse Resp B/P Pulse O2 O2 Flow FiO2 Ox Delivery Rate 10/13 1329 80 98/58 10/13 1328 80 98/58 10/13 0802 97.0 84 92/74 10/13 0759 97.0 84 92/74 on exam; aox3, nad. cv; s1,s2, rrr. resp; clear abd; soft, nt, bs+ ext; no edema. Laboratory Tests 10/13 10/13 0535 0522 Chemistry TSH &T3 &Free T4 Intrp (0.270 - 4.20 uIU/mL) 2.390 Urines Urine Color (YEL,AMB,STR) YEL Urine Clarity (CLEAR) CLEAR Urine pH (5.0 - 8.0) 6.0 Ur Specific Canadian (1.001 - 1.035) 1.025 Urine Protein (NEG,<30 MG/DL) NEG Urine Ketones (NEG) NEG Urine Nitrite (NEG) NEG Urine Bilirubin (NEG) NEG Urine Urobilinogen (0.1 - 1.0 EU/dl) 0.2 Ur Leukocyte Esterase (NEG) TRACE H Ur Microscopic SEDIMENT EXAMINED Urine RBC (0 - 5 /HPF) RARE Urine WBC (0 - 2 /HPF) 1-3 H Ur Epithelial Cells (NONE,FEW) FEW Urine Hemoglobin (NEG) NEG Urine Glucose (N MG/DL) NEG A/P; 51/F with PMH of anxiety, depression and bipolar disorder who was admitted originally with altered mental state likely secondary to drug overdose as well as suicide attempt. Patient had taken opiate and some kind of cocaine. On admission to medical floor patient had acute kidney injury as well as high anion gap. Initially patient was admitted to ICU and then after stabilization, she was transferred to general medicine floor. After psych evaluation it was felt that patient will be better served in the inpatient psych lockhart after medically stable. Patient is on Ativan taper for history of alcohol intoxication. Patient is also on multivitamin, folate and thiamine. I advised that she should find herself a loss prevention and safety manager and discuss these hot flashes with the loss prevention and safety manager as an outpatient to see if she would be a candidate for any hormonal therapy. Psych management per psych. Please provide her some Chapstick as she was complaining of dried lips.
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
--- NOTE | 2016-10-13 22:06 | NUR ---
PT IS CALM, COOPERATIVE WITH STAFF AND PEERS, AND COMPLIANTW WITH UNIT RULES. PT MOOD SPENT GREATER AMOUNT OF TIME IN [place] EVENING PROGRESSED. PT MOOD IS STABLE, AFFECT IS EUTHYMIC, LABILE AT TIMES - CRYING ONCE IN A WHILE - COMMUNICATION IS NORMAL, AND APPETITE IS NORMAL. PT DENIES SI AT THIS TIME.
[2016-10-14] VITALS (7 sets, daily range): BP systolic 109–123; BP diastolic 57–85
--- NOTE | 2016-10-14 13:57 | NUR ---
PT IS STABLE WITH FLAT AFFECT. CALM, COOPERATIVE AND COMPLIANT.PT DID NOT ATTEND ANY GROUPS THIS AM SHIFT. OUT IN THE COMMUNITY FOR A LITTLE WHILE, MINIMAL INTERACTION WITH PEERS/STAFF. VERY VAGUE AND SLOW TO RESPOND. VS ARE STABLE AND DENIES ANY SI/HI TO THIS MHW.
--- NOTE | 2016-10-14 14:54 | CP SOUTH PROGRESS NOTE PSYCH ---
Psych (Inpt) Progress Note Progress Note Progress Note: I discussed this patient's progress to date, current mental status, treatment process in the context of the treatment plan, and discharge planning with staff/ team in the daily morning inpatient team meeting. I also met with the patient myself in individual session. A total of 25 minutes was spent with the patient with more than 50% spent in counseling and/or coordination of care. SUBJECTIVE: "My anxiety is through the roof." OBJECTIVE: Current Medications Sig/Stewart Start time Last Medication Dose Route Stop Time Status Admin Acetaminophen 650 MG Q6P PRN 10/12 1645 AC PO Al Hydroxide/Mg 30 ML Q4-6 PRN PRN 10/12 1645 AC Hydroxide PO Folic Acid 1 MG DAILY 10/13 1000 AC 10/14 PO 0824 Gabapentin 400 MG 0800,1300,1700,2200 10/14 0900 AC 10/14 PO 1339 Gabapentin 300 MG Q4P PRN 10/12 1645 DC 10/12 PO 2217 Lorazepam 1 MG BID 10/12 2200 AC 10/14 PO 0823 Lorazepam 2 MG Q2P PRN 10/12 1645 AC PO Lorazepam 1 MG Q2P PRN 10/12 1645 AC 10/13 PO 0532 Magnesium Hydroxide 30 ML AT BEDTIME PRN 10/12 1645 AC PO Multivitamins 1 TAB DAILY 10/13 1000 AC 10/14 PO 0824 Nicotine 21 MG 0800 10/15 0800 UNVr TOP Nicotine 14 MG DAILY 10/13 1000 DC 10/14 TOP 0824 Risperidone 1 MG 0800 10/15 0800 UNVr PO Risperidone 1.5 MG AT BEDTIME 10/14 2200 AC PO Risperidone 1 MG BID 10/12 2200 DC 10/14 PO 0824 Thiamine HCl 100 MG DAILY 10/13 1000 AC 10/14 PO 0824 Laboratory Tests 10/14 10/14 0638 0638 Chemistry Hemoglobin A1c Pending Triglycerides (<150 mg/dL) 171 H Cholesterol (<200 MG/DL) 276 H LDL Cholesterol, Calc (65 - 129 mg/dL) 198 H HDL Cholesterol (40 - 60 mg/dL) 44 Cholesterol/HDL Ratio (0.00 - 4.23 %) 6 H Vital Signs Date Time Temp Pulse Resp B/P Pulse O2 O2 Flow FiO2 Ox Delivery Rate 10/14 1238 87 112/63 10/14 1204 87 112/63 10/14 0832 97.2 73 123/85 10/14 0831 97.1 82 123/85 10/13 1954 96.7 84 106/62 10/13 1627 95 122/70 10/13 1622 72 135/75 ASSESSMENT: When I greeted the patient this morning, she did not recall speaking to me yesterday. States she is still experiencing alcohol withdrawal symptoms. CIWA scores have been negative today. Patient states that she takes Risperdal because "I stick on thoughts. I obsess about things. The Risperdal helps me not to obsess." Also complaining of hot flashes, due to menopause. I placed a phone call to the patient's visiting nurse, Fei Tobar, cell , to review medications including Risperdal Consta at that she had been taking, it appears up until the end of August. She states that her depression is manageable, but that her anxiety is "really bad." Denies suicidal ideation, homicidal ideation, auditory hallucinations, visual hallucinations, paranoid ideation. States that she slept intermittently last night, denies nightmares. States her appetite is okay. Speech is well articulated, goal-directed, average in rate, volume and tone. Cooperative, alert and oriented 3, logical. Appears disheveled. The patient understands the risks/benefits/side effects of the medication and is agreeable to continue taking them. PLAN: Gabapentin 400 mg 4 times daily for anxiety. Risperidone by mouth 1 mg in the morning and 1-1/2 mg at bedtime. Anticipate restarting Risperdal Consta after verifying dose. Continue with current management as patient is improving. Continue to provide support and encouragement.
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
--- NOTE | 2016-10-14 21:34 | NUR ---
PT IS VISIBLE ON UNIT, A LOT MORE SOCIAL WITH PEERS AND STAFF. HAD VISIT FROM A FRIEND THIS EVENING. ATTENDED WRAP UP MEETING. NO COMPLAINTS OR SI REPORTED. PT HAS A STABLE MOOD AND FULL RANGE AFFECT.
--- NOTE | 2016-10-15 03:34 | NUR ---
PT. SLEPT WELL THIS SHIFT.
[2016-10-15 08:00] VITALS: BP 108/58
--- NOTE | 2016-10-15 10:03 | SOCIAL WORKER PROG NOTE PSYCH ---
Social Work Progress Note Progress Note Met with Roxie to discuss her her housing plan. She is refusing to go to a jail or [facility] at this point. Discussed option of a residential rehab or sober house - she is not interested. 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 She plans to call him to make sure she can go back there. She stated "I have money, I want to get my own place." Her insight and judgement is poor at this time.
--- NOTE | 2016-10-15 11:43 | CP SOUTH PROGRESS NOTE PSYCH ---
Psych (Inpt) Progress Note Progress Note Progress Note: I discussed this patient's progress to date, current mental status, treatment process in the context of the treatment plan, and discharge planning with staff/ team in the daily morning inpatient team meeting. I also met with the patient myself in individual session. A total of 25 minutes was spent with the patient with more than 50% spent in counseling and/or coordination of care. SUBJECTIVE: "The Risperdal is my miracle drug. It's necessary for me. I can't live without it." OBJECTIVE: Current Medications Sig/Stewart Start time Last Medication Dose Route Stop Time Status Admin Acetaminophen 650 MG Q6P PRN 10/12 1645 AC PO Al Hydroxide/Mg 30 ML Q4-6 PRN PRN 10/12 1645 AC Hydroxide PO Folic Acid 1 MG DAILY 10/13 1000 AC 10/15 PO 0925 Gabapentin 400 MG 0800,1300,1700,2200 10/14 0900 AC 10/15 PO 0925 Lorazepam 0.5 MG 0800,10/15 AC PO 10/22 195 Lorazepam 1 MG BID 10/12 2200 DC 10/14 PO 2121 Lorazepam 2 MG Q2P PRN 10/12 1645 DC PO Lorazepam 1 MG Q2P PRN 10/12 1645 DC 10/13 PO 0532 Magnesium Hydroxide 30 ML AT BEDTIME PRN 10/12 1645 AC PO Multivitamins 1 TAB DAILY 10/13 1000 AC 10/15 PO 0926 Nicotine 21 MG 0800 10/15 0800 AC 10/15 TOP 0925 Nicotine 14 MG DAILY 10/13 1000 DC 10/14 TOP 0824 Risperidone 50 MG Q 2 WEEKS 10/15 1000 AC IM Risperidone 1 MG 0800 10/15 0800 CAN PO Risperidone 1.5 MG AT BEDTIME 10/14 2200 CAN PO Risperidone 1 MG 0800,2200 10/14 2200 AC 10/15 PO 0925 Risperidone 1 MG BID 10/12 2200 DC 10/14 PO 0824 Thiamine HCl 100 MG DAILY 10/13 1000 AC 10/15 PO 0926 Vital Signs Date Time Temp Pulse Resp B/P Pulse O2 O2 Flow FiO2 Ox Delivery Rate 10/15 0800 95.5 67 108/58 10/15 08 95.5 67 108/58 10/14 2007 96.8 93 121/74 10/14 1605 90 109/57 10/14 1558 90 109/57 10/14 1238 87 112/63 ASSESSMENT: Patient presents as cooperative but anxious. Advocating for benzodiazepines. She is eager to resume Risperdal Consta, which the pharmacy ordered yesterday, and we are anticipating delivery today. Denies depression or anxiety at this time in the morning, however states "I just woke up. I usually have the worst anxiety." She also states that the only thing that relieves her anxiety is alcohol. States that she intends to resume drinking alcohol after discharge. We discussed treatment and/or rehabilitation programs, which the patient is declining at this time. "If I can't get a benzo, I'm going to drink." We reviewed a number of different medications, all of which she says that she has taken in the past, and none have proven effective except for Risperdal. Denies suicidal ideation, homicidal ideation, auditory hallucinations, visual hallucinations, paranoid ideation. States that she slept well last night, she has a good appetite. At 8:00 this morning, states "I'm starving", and is looking forward to breakfast. Speech is well articulated, goal-directed, average in rate, volume and tone. The patient understands the risks/benefits/side effects of the medication and is agreeable to continue taking them. PLAN: Risperdal Consta today. Continue to taper down Ativan to discontinuation. Social work is planning discharge, which must include a plan for IM risperdal consta Q2 Weeks. I called and left a message at [facility] to speak with her outpatient provider for collateral information, Anne White APRN, who is out sick today. Continue with current management as patient is improving. Continue to provide support and encouragement.
--- NOTE | 2016-10-15 11:53 | NUR ---
PT WAS IN AND OUT OF THE MILIEU TODAY. SHE DID NOT ATTEND PLANNING MEETING BUT DID ATTEND FOCUS GROUP THIS MORNING. SHE HAS SOME INTERACTIONS WITH HER PEERS, AND STAFF. PT HAS NOT BEEN SCORING ON HER CIWA. WHEN ASKED PT DENIES THOUGHTS OF HURTING SELF.
[2016-10-15 12:25] VITALS: BP 95/55
[2016-10-15 12:26] VITALS: BP 95/55
--- NOTE | 2016-10-15 13:38 | SOCIAL WORKER PROG NOTE PSYCH ---
Social Work Progress Note Progress Note Talked to Mary Morocho at [facility]. Roxie is only open with them in case management right now. She missed several appts. and they had discharged her. They are her Rep Payee. I asked how she got evicted from an apartment if they are Rep Payee? I was told that the apartment was not hers and that it was her significant others apartment. She comes and picks up her money from them weekly. Roxie asked to speak with me. She wanted to know when she was leaving. I told her that she is not detoxed yet and we will most likely discharge her Tuesday. Asked why she was refusing a referral to [facility]? She stated very clearly that she wanted to get an apartment and she has no intention of going to aftercare treatment. She said she will most likely return to the [facility] house where she was staying. I said "yesterday, you said that wasn't a good sitution." She said that they talked and he loves her. She was very restless throughout our meeting, she kept moving and swinging her feet around. I asked if she was anxious? She said she was very anxious and has been that way all day. I asked her if she wasn't going to do rehab, where she was going to go for treatment? Asked if she would do an IOP? She said that she was not going to do IOP. She said she was going to go back to [facility]. I told her that they want to see her do a rehab. She got irritated and was upset talking about how she has been with them for 20 years and now they are doing this to her. I told her that we could try and talk to her case assembler or Mary Morocho. She left Mary a message. Received a call back from her cm Ariana Haney. I informed Ariana of the struggle I was having in getting her to look at aftercare treatment. Ariana would like to speak with her further. Roxie called Ariana and asked her to let her come back there to get her Risperdal IM. Ariana must have informed her that they want her to go to a rehab before returning to their clinic. This upset Roxie, who stated she would just go off her meds then and she hung up the phone. Roxie cried after the call and is feeling scared that she won't have anyone to provide medication for her. She feels bullied by Care and doesn't feel that what they are doing is right.
--- NOTE | 2016-10-15 15:33 | SOCIAL WORKER TX PLAN PSYCH ---
Treatment Plan - Please Document: - Evidence that there is ongoing collaboration between - the patient and the interdisciplinary team, - including the patient's active participation and - responsibility for engaging in the treatment regimen, - and that the treatment plan is individualized and - relevant to the patient's conditions. - Treatment plan should reflect documentation indicating - that all active therapeutic efforts are included. Strengths/Capabilities: long h/o of tx compliance prior to recently Physical Limitations (Interventions): Poor insight; recent OD Patient Identified Trmt Goals: " I need to get an apartment" Discharge Plan: Patient refuses rehab, wants to follow up with [facility] outpatient Problem/Goals #1 Problem #1: suicidal ideation Goal (Short Term): Patient will contract for safety on the unit Goal (Intermediate): Patient will be able to verbalize diminished thoughts of SI and have future oriented thoughts Interventions: Patient will be offered medication mangement with the REMOTE BROADCAST ENGINEER, groups on symptom management, coping skills, goals group, focus group, self-esteem, relaxation, accupuncture. Scoring Machine Operator will assess SI daily and explore motivation for change. Scoring Machine Operator will coordinate with community provider and set up aftercare. Modalities: group/ individual Problem/Goals #2 Problem #2: polysubstance use Goal (Short Term): patient will identify the pros and cons of continued use Goal (All Source Intelligence): Patient will be willing to engage in treatment for her substance use Interventions: patient will be offered groups on relapse prevention, AA on unit, coping skills, symptom management. Scoring Machine Operator will explore the consequences of continued use. Modalities: groups/ indivdual DSM5/PS Stressors/Medical Prob Diagnosis' (DSM 5, Stressors, Medical): Bipolar I disorder, mixed, mainly irritable type with rapid cycling Alcohol use disorder, severe, recurrent Opioid dependence Benzodiazepine use disorder Substance-induced mood disorder History of PTSD with "flashbacks" Borderline P.D., severe. Current GAF: 20 Treatment Team - Responsibilities of members of the treatment team include: - Medication Management- MD or REMOTE BROADCAST ENGINEER - Medication Administration and Monitoring- Nurse - Group Therapy- Occupational Therapist - 1:1 Therapy,Disch Planning,family involvement-Scoring Machine Operator
[2016-10-15 15:55] VITALS: BP 107/59
[2016-10-15 19:45] VITALS: BP 95/56
[2016-10-15 19:51] VITALS: BP 95/56
--- NOTE | 2016-10-15 21:56 | NUR ---
Pt is out in the coomunity mood is stable irritable at times that requires redirection. Pt came for vital signs appetite is good. will continue to monitor the pt behavior overnight.
[2016-10-16] VITALS (8 sets, daily range): BP systolic 99–116; BP diastolic 53–92
--- NOTE | 2016-10-16 04:22 | NUR ---
SLEPT WELL, NO COMPLAINTS
--- NOTE | 2016-10-16 13:31 | NUR ---
Pt is seen on the unit however minimal interactions with peers and staff, isolative at times and irritable edge noted, withdrawn, attending groups intermittently, mood is overall stable with euthymic affect, no issues or complaints reported or observed.
--- NOTE | 2016-10-16 14:18 | CP SOUTH PROGRESS NOTE PSYCH ---
Psych (Inpt) Progress Note Progress Note Include the following elements, when applicable: Involvement in the active treatment of the patient with behavioral observations of the patient and the patient's response to the treatment. Review of the ongoing treatment process in the context of the treatment plan. Indication of how multi-disciplinary staff members are carrying out the treatment plan. Plans for future interventions and recommendations for revision of the treatment plan. Liaison with other physicians/providers. Progress Note: Stated that she was aggravated, my life was going nowhere and that she feels the same way now but Im not going to kill myself, I got to figure it out I got a little drunk and over exaggerated things a little bit Stated that she is focusing on getting her own place to live in the future, wants to leave on Tuesday. We discussed that she needs to have stable outpatient plan in addition to maintain her clinical stability and to discuss discharge planning w/ primary team. MSE: middle aged woman, good eye contact, well related. Mild fidgetiness, no tremor or abnomral movements otherwise. Speech is normal. Mood is good and affect is full and stable. Thought process is goal directed. Thought content negative for any depressed mood though she states that she has similar life circumstances she is better equipped to deal with them; no delusions or SI/HI. Not internally preoccupied. Insight adequate, judgment fair. Risk associated w/ depressive sx, hx of drug use d/o and non adherence, social stressors - Manage w/ education, med titration, mileu therapy, groups, social support. A: 51 y/o woman w/ hx depressive and psychotic sx, drug use hx, admitted to the ICU last week after intoxication/overdose, where she was combative, aggressive, agitated and confused. She has since stabilized medically, and has been stabilizing overall psychiatrically since her admission to [facility]. She has poor insight regarding impact of her drug use on her mental health, minimizing importance of drug use tx, but otherwise doing well. Plan: Continue current plan of care. Educated her about outpatient drug use tx and programs.
--- NOTE | 2016-10-16 20:01 | NUR ---
PT IS STABLE WITH FULL RANGE OF AFFECT, MOOD IS BRIGHT. PT IS APPROPRIATE AND COMPLIANT. CURRENTLY IN THE LOUNGE AND INTERACTING WITH PEERS. VISITED WITH HER SIGNIFICANT OTHER TODAY AND WAS APPROPRIATE. VS ARE STABLE AND DENIES ANY SI/HI TO THIS MHW.
[2016-10-17] VITALS (7 sets, daily range): BP systolic 97–109; BP diastolic 57–65
--- NOTE | 2016-10-17 13:25 | NUR ---
PT HAS BEEN ISOALTIVE THIS SHIFT STAYING IN ROOM FOR MOST OF THE DAY. PT DOES COME OUT FOR VITALS AND MEALS. PT IS NOT ATTENDING GROUPS THIS SHIFT. PT MOOD IS STABLE WITH A FULL RANGE AFFECT. PT DOES INTERACT WELL WITH STAFF AND PEERS. PT DENIES SI THOUGHTS
--- NOTE | 2016-10-17 13:39 | CP SOUTH PROGRESS NOTE PSYCH ---
Psych (Inpt) Progress Note Progress Note Include the following elements, when applicable: Involvement in the active treatment of the patient with behavioral observations of the patient and the patient's response to the treatment. Review of the ongoing treatment process in the context of the treatment plan. Indication of how multi-disciplinary staff members are carrying out the treatment plan. Plans for future interventions and recommendations for revision of the treatment plan. Liaison with other physicians/providers. Progress Note: Anxious today, jittery. Staff noted her to be rocking, anxious as well. Stated that risperdal often helps; stated that she has been on oral and dec doses in the past. Agreed to increase to 1.5mg twice daily. Also will give low dose benadryl prn anxiety she had wanted something else, stated that neurontin doesnt do anything and we discussed w/ her substance use hx, concern for overdose or withdrawal sx was significant. She did state that she is doing better overall, wants to get out of here soon so she can move forward w/ her life. MSE: middle aged woman, good eye contact, well related with adequate grooming. Fidgeting and rocking at times, anxiou appearing. Speech is normal. Mood is anxious but euthymic overall and affect is full and stable. Thought process is goal directed. Thought content negative for any depressed mood; more anxiety. No delusions or SI/HI. Not internally preoccupied. Insight adequate, judgment fair. Risk associated w/ depressive sx, hx of drug use d/o and non adherence, social stressors - Manage w/ education, med titration, mileu therapy, groups, social support. A: 51 y/o woman w/ hx depressive and psychotic sx, drug use hx, admitted to the ICU last week after intoxication/overdose, where she was combative, aggressive, agitated and confused. She has since stabilized medically, and has been stabilizing overall psychiatrically with residual anxiety sx. Plan: Will add low dose benadryl 25mg q12hrs PRN anxiety; increase risperdal dosing to 1.5mg twice daily; educated that once risperdal consta levels in body increase and she maintains steady state after several doses, could lower oral.
--- NOTE | 2016-10-17 21:05 | NUR ---
DR. SCOTT CALLED DUE PATIENT ONGOING ANXIETY AND BENADRYL INCREASED TO EVERY 8 HRS PRN
--- NOTE | 2016-10-17 21:44 | NUR ---
PT IS CALM, COOPERATIVE WITH STAFF AND PEERS, AND COMPLIANT WITH UNIT RULES. PT IS IN MILIEU, INTERACTING WELL WITH PEERS. MOOD IS STABLE, AFFECT IS FULL RANGE, COMMUNICATION IS NORMAL, AND APPETITE IS NORMAL. PT DENIES SI AT THIS TIME.
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
--- NOTE | 2016-10-18 07:04 | NUR ---
PATIENT SLEPT ALL NIGHT.
[2016-10-18 08:08] VITALS: BP 111/65
[2016-10-18 08:10] VITALS: BP 111/65
--- NOTE | 2016-10-18 09:13 | SOCIAL WORKER PROG NOTE PSYCH ---
Social Work Progress Note Progress Note Roxie wants to leave today. She is going to stay with the man she was with prior to coming in. She reports that he will be putting her on the lease. He's at an [address] on [address] in [place]. Called [facility] to see if they would be willing to take Roxie back clinically. Meanwhile made appt.'s with Dk ESTEBAN for follow up. Intake scheduled for 10/21 11am at [address] Medication appt. with Dr. Wade 10/22 at 1:30pm [address] [facility] later left a message stating that she can be seen for an intake on 11/01 with Nidia Ferreira. Reviewed her appts. with her and told her that she has to go to the intake appointments or she can't be seen for medication. Informed [facility] that she was discharging today. Friend was able to pick her up at 1:30pm today. W-10 and patient health summary faxed to [facility].
[2016-10-18 12:27] VITALS: BP 91/57
[2016-10-18 12:28] VITALS: BP 91/57
--- NOTE | 2016-10-18 12:40 | NUR ---
ANTICIPATE discharge today [place] [facility] [place] be staying with a friend and obtaining after care with [facility] and [facility]. Modd is stable full range of affect. deined thoughts of self harm when asked. Given education on suicide prevention and bipolar d/o.
[2016-10-18] MEDS ORDERED: RISPERDAL50 MG/2 ML IM (13:06)
[2016-10-18] MEDS ORDERED: DIPHENHYDRAMINE25 M4 PO (13:30)
[2016-10-18] MEDS ORDERED: NICOTINE PATCH1 EAC3 TOP (13:31)
[2016-10-18] MEDS ORDERED: GABAPENTIN400 M2 PO (13:32)
[2016-10-18] MEDS ORDERED: RISPERDAL1 M1 PO (13:32)
--- NOTE | 2016-10-18 14:35 | CP SOUTH PROGRESS NOTE PSYCH ---
Psych (Inpt) Progress Note Progress Note Include the following elements, when applicable: Involvement in the active treatment of the patient with behavioral observations of the patient and the patient's response to the treatment. Review of the ongoing treatment process in the context of the treatment plan. Indication of how multi-disciplinary staff members are carrying out the treatment plan. Plans for future interventions and recommendations for revision of the treatment plan. Liaison with other physicians/providers. Progress Note: Medication list reviewed. Case and treatment discussed in team meeting. Staff reports that the patient does not seem committed to treatment or to staying clean. Described as anxious. Not suicidal. Lost a molar. Patient seen at 11:15 AM. Reports she was admitted because she had taken some pills. States she does not know if she did not for attention from her friends. Describes the overdose as "stupid." Affect is calm and euthymic. Feels great. Has no complaints. Excited about discharge. Mood is positive. Rates depressed mood 0/10. States anxiety is always there, always 7/10, at least. Denies feeling hopeless, helpless, worthless or guilty. Denies active and passive suicidal ideation. Denies homicidal ideation. Denies auditory and visual hallucinations. Denies paranoid ideation and magical moreno. States it has been too hot in here to sleep, but even here, she has been sleeping all right. Reports that hot flashes wake her up. Describes appetite as excellent. Energy is great. Tolerating medications well, without complaint. Feels ready and safe for discharge. Plans to live with a friend. Patient gave me permission to speak with Anne Abernathy APRN. IMPRESSION: Condition improved. Okay for discharge today to follow up at [facility] and at [facility] for intake. Please see social insurance adviser's note for more details.
--- NOTE | 2016-10-18 16:13 | IP INCIDENTAL NOTE PSYCH ---
Incidental Note Notation: Voicemail left for Sugar Vasquez APRN at [facility] that patient has been discharged and that I will send a discharge summary to her.
--- NOTE | 2016-10-18 17:15 | DISCHARGE SUMMARY REPORT-PSYCH ---
Visit Information Visit Dates/Diagnosis' Admission Date: 10/12/16 Discharge Date: 10/18/16 Reason for Admission: Status post drug overdose. Psy Discharge Primary Diag: Bipolar d/o, mixed Psy Discharge Secondary Diag: Alcohol use d/o, severe Opioid dependence Benzodiazepine use d/o Substance induced mood do Hx PTSD Borderline personality do S/p recent drug overdose S/p acute kidney injury MRSA colonized Hospital Course Significant Lab Findings: Lab ALT 32 U/L 10/11/16 0450 AST 32 U/L 10/11/16 0450 Albumin 3.1 g/dL L 10/11/16 0450 Albumin/Globulin Ratio 1.0 % L 10/07/16 1437 Anion Gap 8 10/12/16 0615 BUN 19 mg/dL H 10/12/16 0615 BUN/Creatinine Ratio 19.0 % 10/12/16 0615 Chloride 105 mmol/L 10/12/16 0615 Cholesterol 276 MG/DL H 10/14/16 0638 Cholesterol/HDL Ratio 6 % H 10/14/16 0638 Creatine Kinase 756 U/L H 10/10/16 0450 Creatinine 1.0 mg/dL 10/12/16 0615 Estimated GFR 59 ml/min L 10/12/16 0615 HDL Cholesterol 44 mg/dL 10/14/16 0638 Hemoglobin A1c 5.2 10/14/16 0638 LDL Cholesterol, Calc 198 mg/dL H 10/14/16 0638 Phosphorus 4.7 mg/dL H 10/11/16 0450 Potassium 4.3 mmol/L 10/12/16 0615 Serum Osmolality 318 MOSM/KG H 10/07/16 1437 Sodium 137 mmol/L 10/12/16 0615 TSH &T3 &Free T4 Intrp 2.390 uIU/mL 10/13/16 0522 Total Protein 8.6 g/dL H 10/07/16 1437 Triglycerides 171 mg/dL H 10/14/16 0638 APTT 39 SEC H 10/08/16 0600 INR 1.10 10/08/16 0600 PT 11.5 SEC 10/08/16 0600 Hct 36.6 % L 10/12/16 0615 Hgb 12.3 G/DL 10/12/16 0615 MCH 32.1 PG H 10/12/16 0615 RBC 3.83 /CUMM L 10/12/16 0615 Acetaminophen < 10.0 ug/mL L 10/07/16 1437 Amphetamines Screen 130 NG/ML 10/07/16 1437 Barbiturate Screen 88 NG/ML 10/07/16 1437 Ethylene Glycol NEGATIVE 10/07/16 1434 Methadone Screen 101 NG/ML 10/07/16 1437 Salicylates < 1.0 mg/dL 10/07/16 1437 Serum Alcohol < 10.0 MG/DL 10/07/16 1437 U Benzodiazepines Scrn 224 NG/ML H 10/07/16 1437 Ur Phencyclidine Scrn < 6.00 NG/ML 10/07/16 1437 Urine Cannabis Screen 26.50 NG/ML 10/07/16 1437 Urine Cocaine Screen ND NG/ML 10/07/16 1437 Urine Opiates Screen 2589.00 NG/ML H 10/07/16 1437 Ur Epithelial Cells FEW 10/13/16 0535 Ur Leukocyte Esterase TRACE H 10/13/16 0535 Ur Microscopic SEDIMENT EXAMINED 10/13/16 0535 Urine Test NEGATIVE 10/07/16 1437 Urine RBC RARE /HPF 10/13/16 0535 Urine WBC 1-3 /HPF H 10/13/16 0535 EKG 10/10/16 showed sinus rhythm at a rate of 89, normal ECG, QT 368, QTc 448. Course Complications: None. Consultations: Patient was seen by Dr. Nicole for a brief admit note. Please refer to that note for additional information. Allergies: Coded Allergies: Penicillins (UNKNOWN 10/07/16) Hospital Course/TX Response: The patient was monitored on the unit for safety, withdrawal and mood disturbance. She participated in multi-modal treatments on the unit. Oral Risperdal dose was increased to 1.5 mg b.i.d. and Risperdal consta was restarted. Ativan was tapered to off. Neurontin was ordered at 400 mg 4x/day. Benadryl was ordered p.r.n. Mood and affect have improved. Suicidal ideation has remitted. Progress note from date of discharge, 10/18/16: Medication list reviewed. Case and treatment discussed in team meeting. Staff reports that the patient does not seem committed to treatment or to staying clean. Described as anxious. Not suicidal. Lost a molar. Patient seen at 11:15 AM. Reports she was admitted because she had taken some pills. States she does not know if she did not for attention from her friends. Describes the overdose as "stupid." Affect is calm and euthymic. Feels great. Has no complaints. Excited about discharge. Mood is positive. Rates depressed mood 0/10. States anxiety is always there, always 7/10, at least. Denies feeling hopeless, helpless, worthless or guilty. Denies active and passive suicidal ideation. Denies homicidal ideation. Denies auditory and visual hallucinations. Denies paranoid ideation and magical moreno. States it has been too hot in here to sleep, but even here, she has been sleeping all right. Reports that hot flashes wake her up. Describes appetite as excellent. Energy is great. Tolerating medications well, without complaint. Feels ready and safe for discharge. Plans to live with a friend. Patient gave me permission to speak with Anne Bae APRN. IMPRESSION: Condition improved. Okay for discharge today to follow up at [facility] and at [facility] for intake. Please see group social worker's note for more details. Discharge HBIPS - Tobacco Use Treatment Offered Post DC Medications Offered: Script Given-See Med List Post DC Tobacco Treatment Plan: [facility] Program Appt Date: 10/20/16 Program Appt Time: 1600 - EtOH/Drug Use D/O Treatment Offered Post DC Medications Offered: Med Not Indicated for D/O Post DC EtOH/SubAbuse TX Plan: Refused Post DC Tx Pgm Metabolic Screening - Screen if on a Neuroleptic Medication - Metabolic screening should include: - Blood Pressure, BMI, Glucose or Hgb A1c, & a - Lipid profile from within the past 365 days. Metabolic Screening () Not Applicable, patient not on a neuroleptic. OR () Patient on a neuroleptic(s) . Enter below results for Glucose or Hemoglobin A1C, and lipid panel if obtained during the last 365 days. BMI: 24.600 Blood Pressure: 91/57 Laboratory Results (If applicable): Lab Cholesterol 276 MG/DL H 10/14/16 0638 Cholesterol/HDL Ratio 6 % H 10/14/16 0638 HDL Cholesterol 44 mg/dL 10/14/16 0638 Hemoglobin A1c 5.2 10/14/16 0638 LDL Cholesterol, Calc 198 mg/dL H 10/14/16 0638 Triglycerides 171 mg/dL H 10/14/16 0638 Discharge Instructions General Discharge Information Discharge Medications: Discharge Medications- (Dose, route, freq, indication): HOME MEDICATION LIST START taking these NEW Home Medications: Diphenhydramine HCl Dose: ORAL, EVERY 8 HOURS Qty: 42 Called in to (Diphenhydramine 25 Milligram NEEDED as needed for Refills: 0 Pharm 1 HCl) 25 MG CAPSULE ANXIETY/AGITATION/INSOMNI Last Taken:10/17/16 Time:11:30am Nicotine (Nicotine Dose: On the skin, DAILY @8 AM Qty: 14 Called in to Patch) 21 MG/24 HOUR 21 Milligram for smoking cessation Refills: 0 Pharm 1 PATCH.TD24 Last Taken:10/18/16 Time:8am Gabapentin Dose: ORAL, Qty: 56 Called in to (Gabapentin) 400 MG 400 Milligram 0800,1300,1700,2200 for Refills: 0 Pharm 1 CAPSULE anxiety Last Taken:10/18/16 Time:1pm Risperidone Dose: INTRAMUSC, EVERY 2 WEEKS Qty: 1 Called in to Microspheres 50 Milligram for bipolar disorder Refills: 0 Pharm 1 (Risperdal Consta) Given on 10/15/16. 50 MG/2 ML SYRINGE Next due on 10/29/16. Risperidone Dose: ORAL, 0800,2200 for Qty: 42 Called in to (Risperdal) 1 MG 1.5 Milligram bipolar disorder Refills: 0 Pharm 1 TABLET Last Taken:10/18/16 Time:8am STOP taking these DISCONTINUED Home Medications: Quetiapine Fumarate Dose: ORAL, as needed for MENTAL (Quetiapine Fumarate) 25 MG 25 Milligram HEALTH/SLEEP TAB Reason Stopped: Changed to different med Gabapentin (Neurontin) 300 MG Dose: ORAL, THREE TIMES DAILY for CAP 1 Capsule ANXIETY Reason Stopped: Changed Dose Ibuprofen (Motrin 600 MG Tab) Dose: ORAL, EVERY SIX HOURS NEEDED 600 MG TAB 1 Tablet as needed for PAIN Reason Stopped: KidneyProb Baclofen (Lioresal) 10 MG TAB Dose: ORAL, THREE TIMES A DAY 1 Tablet NEEDED as needed for muscle strain Reason Stopped: Not given Trihexyphenidyl HCl Dose: ORAL, TWICE DAILY for DIRECTED (Trihexyphenidyl HCl) 2 MG 1 Tablet Reason Stopped: Not needed TABLET Risperidone (Risperdal) 1 MG Dose: ORAL, TWICE DAILY for BIPOLAR TABLET 1 Milligram DISORDER Reason Stopped: Changed Dose Lorazepam (Lorazepam) 1 MG Dose: ORAL, TWICE DAILY for ETOH TABLET 1 Milligram Reason Stopped: Not needed Folic Acid (Folic Acid) 1 MG Dose: ORAL, DAILY for ETOH TABLET 1 Milligram Reason Stopped: Not needed Thiamine HCl (Vitamin B-1) 100 Dose: ORAL, DAILY for ETOH MG TABLET 100 Milligram Reason Stopped: Not needed Multivitamin (One Daily Dose: ORAL, DAILY for ETOH Multivitamin) 1 EACH TABLET 1 Tablet Reason Stopped: Not needed 1: [id number], [address] [facility], [place] [address] Multiple Neuroleptics: ([x]) Not Applicable OR Document below three failed attempts at monotherapy, or a plan to taper to monotherapy, or augmentation of Clozapine. () Patient's Diet: Regular. Patient's Activity: No restrictions. DC Disposition: Plans to stay with friend, Teddy. Recommendations: Patient was advised to stay away from drugs and alcohol. She was advised to see CONCRETE FORM SETTER about hot flashes. She was advised to see PCP about abnormal labs (high BUN of 19, low GFR of 59, high cholesterol of 276, high trigylcerides of 171, high LDL of 198, low HCT of 36.6). Referred To: [facility] intake 10/21/16 at 11 a.m[address] [facility] Dr. Wade 10/22/16 at 1:30 p.m. [facility] intake with Nidia Ferreira 11/01/16 at 9:30 a.m. Copies To: WILLIAM AHUMADA,FOZIA; ANNE BAE APRN
== END 2016-10-18 13:40 | DRG 897 ==
LOC: CP SOUTH 15:20 → ENPENDDIS 21:05 → CP SOUTH 21:05
PROVIDERS: Nurse Practitioner Psychiatric/Mental Health; ADMIT Psychiatry & Neurology Psychiatry
DX: F10.20 Alcohol dependence, uncomplicated (principal); F11.20 Opioid dependence, uncomplicated; F39 Unspecified mood [affective] disorder; F13.10 Sedative, hypnotic or anxiolytic abuse, uncomplicated; F60.3 Borderline personality disorder
CPT/HCPCS: 36415; 81001; 99233; J3490

== ENCOUNTER 2017-01-07 08:17 | Emergency (ER) | payer OTHER, MEDICARE ==
[~2017-01-07] VITALS: Ht 157.5 cm; Wt 59.0 kg
[~2017-01-07 08:17] MED LIST changes: +DIPHENHYDRAMINE25 M4 PO; +FOLIC ACID1 M1 PO; +GABAPENTIN400 M2 PO; +LORAZEPAM1 M1 PO; +NICOTINE PATCH1 EAC3 TOP; +ONE DAILY MULT1 EAC2 PO; +RISPERDAL1 M1 PO; +RISPERDAL50 MG/2 ML IM; +VITAMIN B-1100 MG PO
--- NOTE | 2017-01-07 08:51 | ED UPPER/LOWER EXTREMITY COMPL ---
History of Present Illness General Chief Complaint: Lower Extremity Injury Stated Complaint: R KNEE PAIN Source: patient Exam Limitations: no limitations Vital Signs & Intake/Output Vital Signs & Intake/Output Vital Signs Date Time Temp Pulse Resp B/P B/P Pulse O2 O2 Flow FiO2 Mean Ox Delivery Rate 01/07 0823 97.5 83 16 147/99 99 Room Air Allergies Coded Allergies: Penicillins (UNKNOWN 10/07/16) Reconcile Medications Gabapentin 400 MG CAPSULE 400 MG PO 0800,1300,1700,2200 anxiety Oxycodone HCl/Acetaminophen (Percocet 5-325 MG Tablet) 5 MG-325 MG TABLET 1-2 TAB PO Q6P PAIN Risperidone (Risperdal) 1 MG TABLET 1.5 MG PO 0800,2200 bipolar disorder Risperidone Microspheres (Risperdal Consta) 50 MG/2 ML SYRINGE 50 MG IM Q 2 WEEKS bipolar disorder Triage Note: 51 Y/O FEMALE BIBA (TO TRIAGE) C/O "MY ENTIRE R LEG HURTS SO BAD". STATES SHE FELL LAST WEEK AND "TWISTED LEG", THEN FELL AGAIN ON STAIRS LAST NIGHT. NOW C/O R THIGH PAIN, R KNEE PAIN, R ANKLE PAIN AND "JUST THE WHOLE THING". SWELLING NOTED AROUND KNEE. MEDICATED WITH IBUPROPHEN IN TRIAGE IN W/C Triage Nurses Notes Reviewed? yes Onset: Abrupt Duration: day(s): Timing: recent history Severity: moderate, severe Pain/Injury Location: Right: Knee. No Modifying Factors: none HPI: 51-year-old female comes into the emergency room for further evaluation of right knee pain. Patient reports that she had twisted her knee about a week ago and was experiencing some pain and some intermittent buckling of her right knee. Patient reports that today when she was going down steps her knee completely buckled and she fell forward and fell down a few steps and hit her right knee and it's increasingly swollen. Patient reports that she cannot straighten her knee completely. She denies any head trauma or neck pain. Some mild pain to her left arm but does not feel like she broke anything in her left arm. Denies any other associated symptoms or trauma. Past History Travel History Traveled to [place] past 21 day No Medical History Any Pertinent Medical History? see below for history Neurological: NONE EENT: NONE Cardiovascular: NONE Respiratory: NONE Gastrointestinal: NONE Hepatic: NONE Renal: NONE Musculoskeletal: HX. 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 No Review of Systems Review of Systems Constitutional: Reports: no symptoms. EENTM: Reports: no symptoms. Respiratory: Reports: no symptoms. Cardiovascular: Reports: no symptoms. Gastrointestinal/Abdominal: Reports: no symptoms. Genitourinary: Reports: no symptoms. Musculoskeletal: Reports: see HPI. Skin: Reports: no symptoms. Neurological/Psychological: Reports: no symptoms. Hematologic/Endocrine: Reports: no symptoms. Immunological: Reports: no symptoms. All Other Systems: Reviewed and Negative Physical Exam Physical Exam General Appearance: well developed/nourished, mild distress Head: atraumatic Eyes: Bilateral: normal appearance. Ears, Nose, Throat: normal ENT inspection, hearing grossly normal Neck: normal inspection Cardiovascular/Respiratory: no respiratory distress Back: normal inspection Knee Right: joint effusion, soft tissue tenderness, limited range of motion, patient is not allowed me to examine her knee secondary to pain so exam is very limited in regards to evaluating MCL LCL quadriceps tendon patellar tendon and meniscus as well as PCL and ACL, patient is able to lift her right knee but not straighten it completely Neurologic/Tendon: normal sensation, responds to pain, no pulse deficit Skin: intact, normal color, warm/dry Lymphatic: no anterior cervical codie Progress Differential Diagnosis: contusion, dislocation, DVT, gout, septic arthritis, sprain, tendon injury, meniscal tear, MCL/LCL tear, PCl/ACL tear, Plan of Care: Orders Procedure Date/time Status Durable Medical Equipment 01/07 1000 Active Durable Medical Equipment 01/07 0944 Active Diagnostic Imaging: Viewed by Me: Radiology Read. Discussed w/RAD: Radiology Read. Radiology Impression: SERVICE DATE: 01/07/1788 EXAM TYPE: RAD - XRY-KNEE COMPLETE RIGHT EXAMINATION: XR KNEE, RIGHT CLINICAL INFORMATION: Knee pain COMPARISON: None TECHNIQUE: Four views of the right knee. FINDINGS: Normal bony mineralization. There is no evidence of acute fracture or dislocation. Joint spaces are preserved. Patella is slightly low-lying. Small to moderate joint effusion. Mild thickening of the distal quadriceps tendon. IMPRESSION: No acute osseous abnormality. Slightly low-lying patella or mild patella baja. Thickening of the quadriceps tendon. Quadriceps tendon injury cannot be entirely excluded. Small joint effusion. DICTATED BY: ALEKS POWELL MD DATE/TIME DICTATED:01/07/17926 BRAILLE PROOFREADER:PELON DATE/TIME TRANSCRIBED:01/07/17926 Departure Departure Disposition: HOME OR SELF CARE Condition: Stable Clinical Impression Primary Impression: Right knee sprain Referrals: RAYMOND HOBBS MD PATIENT HAS NO PRIMARY CARE DR (PCP/Family) Additional Instructions: Stay nonweightbearing. Ice. Rest. Ibuprofen. Take Percocet for pain. Follow -up with orthopedic doctor. You are going to require an MRI of the right knee. Exam is very limited due to the fact that you are in pain. Please go over all results of today's visit with your primary care doctor. Contact your primary care doctor to let them know you were here in the emergency room. There may be nonspecific findings which may not be related to your visit today here in the emergency room but may require further evaluation and chronic monitoring by your primary care doctor. If you had a laceration today the chance of foreign body always remains. You should follow-up with your primary care doctor for recheck in 3-5 days for a wound check. If you had an x-ray done there is a chance that a fracture could have been missed on initial read and you should follow-up with your primary care doctor for repeat x-rays if symptoms persist. If your blood pressure was elevated here in the emergency room please have rechecked by her primary care doctor within the next 48 hours by your primary care doctor. If you were prescribed a narcotic here in the emergency room or any type of controlled substances you're not allowed to drive while taking this medication or operate any type of heavy machinery. Narcotics can make you feel lightheaded dizziness nausea and can cause constipation. You may need to order picker/assembler a stool softener. Thank you for choosing [facility] emergency room. Please return to the emergency room immediately if you have any other concerns worsening of symptoms. Departure Forms: Customer Survey General Discharge Information Prescriptions: Current Visit Scripts Oxycodone HCl/Acetaminophen (Percocet 5-325 MG Tablet) 1-2 TAB PO Q6P #15 TAB Procedures Splinting Location: right knee Manual Alignment Performed: No Pre-Made Type: knee imobilizer Splint Applied By: splint applied by me Pre-Proc Neuro Vasc Exam: normal Post-Proc Neuro Vasc Exam: normal
--- NOTE | 2017-01-07 09:36 | RADIOLOGY REPORT ---
EXAMINATION: XR KNEE, RIGHT CLINICAL INFORMATION: Knee pain COMPARISON: None TECHNIQUE: Four views of the right knee. FINDINGS: Normal bony mineralization. There is no evidence of acute fracture or dislocation. Joint spaces are preserved. Patella is slightly low-lying. Small to moderate joint effusion. Mild thickening of the distal quadriceps tendon. IMPRESSION: No acute osseous abnormality. Slightly low-lying patella or mild patella baja. Thickening of the quadriceps tendon. Quadriceps tendon injury cannot be entirely excluded. Small joint effusion.
[2017-01-07] MEDS ORDERED: PERCOCET 5-3251 EACH PO (09:59)
[2017-01-07 10:35] VITALS: BP 136/84
== END 2017-01-07 10:36 ==
LOC: ERH 08:17
DX: S83.91XA Sprain of unspecified site of right knee, initial encounter (principal); W10.9XXA Fall (on) (from) unspecified stairs and steps, initial encounter; Y92.9 Unspecified place or not applicable; Y93.9 Activity, unspecified
CPT/HCPCS: 73562-RT

== ENCOUNTER 2017-01-29 03:37 | Emergency (ER) | payer OTHER, MEDICARE ==
[~2017-01-29] VITALS: Ht 157.5 cm; Wt 62.6 kg
[~2017-01-29 03:37] MED LIST changes: +PERCOCET 5-3251 EACH PO
[2017-01-29 03:40] VITALS: BP 126/76
--- NOTE | 2017-01-29 04:07 | ED AMS/SEIZURE/WEAK/DIZZY ---
History of Present Illness General Chief Complaint: ETOH/Drug Related Complaint Stated Complaint: BIBA ETOH Source: patient, EMS Exam Limitations: no limitations Vital Signs & Intake/Output Vital Signs & Intake/Output Vital Signs Date Time Temp Pulse Resp B/P B/P Pulse O2 O2 Flow FiO2 Mean Ox Delivery Rate 01/29 0340 97.8 92 22 126/76 100 01/29 0338 97 Room Air Room Air Allergies Coded Allergies: Penicillins (UNKNOWN 10/07/16) Reconcile Medications Gabapentin 400 MG CAPSULE 400 MG PO 0800,1300,1700,2200 anxiety Oxycodone HCl/Acetaminophen (Percocet 5-325 MG Tablet) 5 MG-325 MG TABLET 1-2 TAB PO Q6P PAIN Risperidone (Risperdal) 1 MG TABLET 1.5 MG PO 0800,2200 bipolar disorder Risperidone Microspheres (Risperdal Consta) 50 MG/2 ML SYRINGE 50 MG IM Q 2 WEEKS bipolar disorder Triage Note: 51YO FEMALE TO RM 11 VIA AMB SP FOUND UNRESPONSIVE BY ROOMMATE. EMS ADMINISTERED NARCAN NASALLY AND AWOKE PT. UPON ARRIVAL --IRRITABLE, CO FEELING ITCHY,COLD, NAUSEATED. Triage Nurses Notes Reviewed? yes Onset: Abrupt Duration: minute(s): Timing: single episode today Injury Environment: home Severity: moderate Modifying Factors: Improves With: other (better w/ narcan). Associated Symptoms: nausea/vomiting/chills HPI: 51-year-old woman presents after an episode of unresponsiveness. Her roommate found her unresponsive. She called 911. The medics administered Narcan. She revived immediately and began vomiting and complaining of chills. Upon arrival in the emergency department she reports that she, "may have snorted some heroin but I'm not sure." She notes that she was drinking alcohol tonight. She denies other drugs. She denies suicidality, homicidality, hallucinations. (TR AHUMADA,ROBERT Payton) Past History Travel History Traveled to [place] past 21 day No Medical History Any Pertinent Medical History? see below for history Neurological: NONE EENT: NONE Cardiovascular: NONE Respiratory: NONE Gastrointestinal: NONE Hepatic: NONE Renal: NONE Musculoskeletal: HX. 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 No (TR AHUMADA,ROBERT Payton) Review of Systems Review of Systems Constitutional: Reports: no symptoms. EENTM: Reports: no symptoms. Respiratory: Reports: no symptoms. Cardiovascular: Reports: no symptoms. GI: Reports: no symptoms. Genitourinary: Reports: no symptoms. Musculoskeletal: Reports: no symptoms. Skin: Reports: no symptoms. Neurological/Psychological: Reports: no symptoms. Hematologic/Endocrine: Reports: no symptoms. Immunologic/Allergic: Reports: no symptoms. All Other Systems: Reviewed and Negative (TR AHUMADA,ROBERT Payton) Physical Exam Physical Exam General Appearance: well developed/nourished, moderate distress Head: atraumatic, normal appearance Eyes: Bilateral: normal appearance, PERRL, EOMI. Ears, Nose, Throat: normal pharynx, normal ENT inspection Neck: normal inspection, supple, full range of motion Respiratory: normal breath sounds, chest non-tender, no respiratory distress, lungs clear Cardiovascular: regular rate/rhythm Gastrointestinal: normal bowel sounds, soft, non-tender Back: normal inspection, normal range of motion Extremities: normal range of motion Neurologic/Psych: no motor/sensory deficits, awake, alert, oriented x 3 Skin: intact, normal color, warm/dry Core Measures ACS in differential dx? No CVA/TIA Diagnosis: No Severe Sepsis Present: No Septic Shock Present: No (TR AHUMADA,ROBERT Payton) Progress Differential Diagnosis: opioid overdose versus alcohol intoxication versus other Plan of Care: Orders Procedure Date/time Status URINE DRUG SCREEN FOR ER ONLY 01/29 417 Complete TROPONIN LEVEL 01/29 417 Complete ETHANOL 01/29 417 Complete COMPREHENSIVE METABOLIC PANEL 01/29 417 Complete CBC WITHOUT DIFFERENTIAL 01/29 417 Complete Laboratory Tests 01/29/17 0707: Methadone Screen < 40, Barbiturate Screen < 60, Ur Phencyclidine Scrn < 6.00, Amphetamines Screen < 100, U Benzodiazepines Scrn < 85, Urine Cocaine Screen > 1000 H, Urine Cannabis Screen 66.00 H 01/29/17 0450: Anion Gap 15, Estimated GFR 37 L, BUN/Creatinine Ratio 16.7, Glucose 101 H, Calcium 8.3 L, Total Bilirubin 0.3, AST 24, ALT 35, Alkaline Phosphatase 70, Troponin I < 0.01, Total Protein 7.5, Albumin 3.9, Globulin 3.6, Albumin/ Globulin Ratio 1.1, CBC w Diff NO MAN DIFF REQ, RBC 3.58 L, MCV 96.1, MCH 32.7 H, RDW 14.9 H, MPV 8.0, Gran % 84.6 H, Lymphocytes % 10.3 L, Monocytes % 4.9, Eosinophils % 0.2, Basophils % 0 L, Absolute Granulocytes 8.9 H, Absolute Lymphocytes 1.1 L, Absolute Monocytes 0.5, Absolute Eosinophils 0, Absolute Basophils 0, PUBS MCHC 34.0, Serum Alcohol 67.0 Initial ED EKG: normal axis, normal intervals, normal p-waves, normal QRS complex, normal sinus rhythm Hand-Off Endorsed To: FLORINA GUPTA MD (TR AHUMADA,ROBERT Payton) Comments: 01/29/17, 0840: Patient is awake alert and oriented 3. Patient wants to go home. Patient's friend is at her bedside and feels comfortable taking her home. Patient does not want to talk to anybody about detox and states that she was trying to harm herself in any way. (FLORINA GUPTA MD) Departure Departure Condition: Stable Clinical Impression Primary Impression: Opioid overdose Secondary Impressions: Alcohol intoxication, Dehydration due to radiation, Vomiting Referrals: PATIENT HAS NO PRIMARY CARE DR (PCP/Family) Departure Forms: Customer Survey General Discharge Information (ROBERT ARMANDO MD) Departure Disposition: HOME OR SELF CARE (FLORINA GUPTA MD)
[2017-01-29 04:58] LABS: ABSOLUTE BASOPHIL COUNT 0 /CUMM (0.0-0.2); ABSOLUTE EOSINOPHIL COUNT 0 /CUMM (0.0-0.7); ABSOLUTE GRANULOCYTE CT 8.9 /CUMM (1.4-6.5); ABSOLUTE LYMPH COUNT 1.1 /CUMM (1.2-3.4); ABSOLUTE MONOCYTE COUNT 0.5 /CUMM (0.10-0.60); BASOPHIL % 0 % (0.0-2.0); EOSINOPHIL % 0.2 % (0-5); HEMATOCRIT 34.4 % (37-47); MEAN CORPUSCULAR HGB 32.7 PG (27.0-31.0); MEAN CORPUSCULAR VOLUME 96.1 FL (81.0-99.0); PLATELET COUNT 251 /CUMM (130-400); RBC DISTRIBUTION WIDTH 14.9 % (11.5-14.5); RED BLOOD CELL CT 3.58 /CUMM (4.20-5.40); WHITE BLOOD CELL COUNT 10.5 /CUMM (4.8-10.8)
[2017-01-29 04:59] LABS: GRANULOCYTE % 84.6 % (42.2-75.2)
== END 2017-01-29 08:47 ==
LOC: ERH 03:37
PROVIDERS: Pediatrics
DX: T40.601A Poisoning by unspecified narcotics, accidental (unintentional), initial encounter (principal); E86.0 Dehydration; F10.129 Alcohol abuse with intoxication, unspecified
CPT/HCPCS: 80307; 96361; 96374; 96375; G0480; J2405; J2550

== ENCOUNTER 2017-10-07 09:56 | Emergency (ER) | payer OTHER, MEDICARE ==
[~2017-10-07] VITALS: Ht 157.5 cm; Wt 64.9 kg
[~2017-10-07 09:56] MED LIST changes: +ASPIRIN EC81 M1 PO; +ATORVASTATIN CA10 M1 PO; +BENZTROPINE MESY1 M1 PO; +CLONAZEPAM0.5 M2 PO; +CYCLOBENZAPRINE10 M1 PO; +DIPHENHYDRAMINE50 M1 PO; +KLONOPIN0.5 M1 PO; +MELATONIN5 M7 PO; +NICORELIEF4 MG PO; +RISPERDAL12.5 MG/2 IM; +RISPERDAL2 M1 PO; +SERTRALINE HCL25 MG PO; +TEGRETOL XR100 MG PO; +TRAZODONE HCL50 M1 PO
[2017-10-07 10:08] VITALS: BP 132/88
--- NOTE | 2017-10-07 10:54 | ED PSYCHIATRIC COMPLAINT ---
History of Present Illness General Chief Complaint: General Adult Stated Complaint: HERE FOR RISPERDAL SHOT Source: patient, old records, CRISIS Exam Limitations: no limitations Vital Signs & Intake/Output Vital Signs & Intake/Output Vital Signs Date Time Temp Pulse Resp B/P B/P Pulse O2 O2 Flow FiO2 Mean Ox Delivery Rate 10/07 1008 97.1 88 16 132/88 98 Room Air Allergies Coded Allergies: Penicillins (UNKNOWN PT FORGOT 06/11/17) Reconcile Medications Aspirin (Ecotrin*) 81 MG TABLET.DR 1 TAB PO AD HEART/BLOOD (Reported) Atorvastatin Calcium 10 MG TABLET 1 TAB PO AD CHOLESTEROL (Reported) Clonazepam 0.5 MG TABLET 1 TAB PO AD UNKNOWN (Reported) Cyclobenzaprine HCl 10 MG TABLET 1 TAB PO Q12P PRN muscle pains Diphenhydramine HCl 50 MG CAPSULE 1 CAP PO AT BEDTIME insomnia/prevent EPS Melatonin 5 MG TABLET 1 TAB PO AT BEDTIME insomnia Nicotine (Nicotine Patch) 21 MG/24 HOUR PATCH.TD24 1 PATCH TOP DAILY nicotine craving Risperidone (Risperdal) 2 MG TABLET 1 TAB PO BID clear thoughts Risperidone (Risperdal) 1 MG TABLET 1 TAB PO AT BEDTIME clear thoughts Take with one 2mg tab QPM for a total of 3mg QPM. Risperidone Microspheres (Risperdal Consta) 12.5 MG/2 ML SYRINGE 2 SYR IM ONCE BIPOLAR Trazodone HCl 50 MG TABLET 1 TAB PO AT BEDTIME PRN INSOMNIA Triage Note: PT STATES THAT SHE WAS TOLD BY ANGELY FROM [facility]ISIS TO COME IN TO ER FOR RISPERAL SHOT, STATES THAT SHE CAN'T GET INTO ANY OUT PT PROGRAMS AND WHEN SHE CALLED SHE WAS TOLD TO COME TO ER. Triage Nurses Notes Reviewed? yes HPI: Patient presents for evaluation and treatment of her bipolar disorder with Risperdal injection. pt contacted the senior clinician distributed energy systems consultant today and was told to report to ED for the injection. pt is concerned that if she does not receive the treatment, her bipolar disorder would worsen. Past History Travel History Traveled to [place] past 21 day No Medical History Any Pertinent Medical History? 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 TANGENTIAL IN THOUGHTS.). Hx Contributory? No Review of Systems Review of Systems Constitutional: Reports: no symptoms. EENTM: Reports: no symptoms. Respiratory: Reports: no symptoms. Cardiovascular: Reports: no symptoms. GI: Reports: no symptoms. Genitourinary: Reports: no symptoms. Musculoskeletal: Reports: no symptoms. Skin: Reports: no symptoms. Neurological/Psychological: Reports: see HPI. Hematologic/Endocrine: Reports: no symptoms. Immunologic/Allergic: Reports: no symptoms. All Other Systems: Reviewed and Negative Physical Exam Physical Exam General Appearance: see below Neurological/Psychiatric: see below Comments: gen: wn, wd, no acute resp distress head: nc/at eyes: normal inspection ears: normal inspection nose: normal inspection throat/mouth: moist mucosa neck: supple, from lungs: quiet resp abd: ND back: normal range of motion ext: normal range of motion, no cyanosis, clubbing or edema of upper ext skin: warm and dry circulatory: normal radial pulses neuro: cn 2-12 grossly intact, speech clear, gait stable psych: calm, cooperative, no apparent delusion, hallucinations or pressured speech, normal affect SAD PERSONS Done? patient not suicidal Progress Differential Diagnosis: decompensated bipolar disorder, medication noncompliance , intoxication, anxiety/depression Plan of Care: continue current care Departure Departure Disposition: HOME OR SELF CARE Condition: Stable Clinical Impression Primary Impression: Bipolar disorder Qualifiers: Active/Remission status: currently active Current bipolar episode type: mixed Current episode severity: moderate Qualified Code: F31.62 - Bipolar disorder, current episode mixed, moderate Referrals: Patient Has No Primary Care Dr (PCP/Family) Additional Instructions: Follow-up with the outpatient psychiatry program as soon as possible. Notify your primary care doctor of this emergency department course and treatment plan. Return if any concerns or sudden worsening. If you do not currently have a primary care physician then please contact the [place] primary care practice at the following phone number: . Thank you for choosing the [facility] Emergency Department for your care. It was a pleasure to serve you today. Hector Russell M.D. [facility] Departure Forms: Customer Survey General Discharge Information
== END 2017-10-07 10:57 ==
LOC: ERH 09:56
DX: F31.9 Bipolar disorder, unspecified (principal)
CPT/HCPCS: 96372